=== PATIENT | female | born 1965 | race Caucasian/White ===

== ENCOUNTER → 2016-09-29 | Outpatient (REF) | payer OTHER ==
[~2016-09-29] MED LIST: *MAMMOGRAM; AMOXIL875 PO; AUG875 PO; EFFE150C; EFFE75CA75; EFFEXORXL1 PO; EFFEXORXL7 PO; FLEXERIL10 PO; HCTZ25 PO; HYDR25TA6; LIPITOR40 PO; TRAZ50TA; XANAX0.25 PO
== END ==
LOC: M SFHCCLAY 15:59
PROVIDERS: ATTEND Family Medicine
DX: F31.81 Bipolar II disorder (principal); J45.909 Unspecified asthma, uncomplicated; I10 Essential (primary) hypertension

== ENCOUNTER → 2017-03-16 | Outpatient (REF) | payer OTHER ==
[2017-03-16 18:18] LABS: ALKALINE PHOSPHATASE 91 U/L (45-117); ALT/SGPT 29 U/L (12-78); ANION GAP 11 MEQ/L (8-16); AST/SGOT 17 U/L (7-37); BILIRUBIN,TOTAL 0.5 MG/DL (0.2-1.0); BLOOD UREA NITROGEN 16 MG/DL (7-18); CALCIUM LEVEL 9.6 MG/DL (8.5-10.1); CARBON DIOXIDE LEVEL 29 MEQ/L (21-32); CHLORIDE LEVEL 100 MEQ/L (98-107); CHOLESTEROL LEVEL 256 MG/DL (<200); CREATININE FOR GFR 0.79 MG/DL (0.55-1.02); GLOMERULAR FILTRATION RATE > 60.0 (>51); GLUCOSE, FASTING 91 MG/DL (70-105); POTASSIUM SERUM 4.5 MEQ/L (3.5-5.1); SODIUM LEVEL 140 MEQ/L (136-145); TRIGLYCERIDES LEVEL 466 MG/DL (<150)
== END ==
LOC: M SFHCCLAY 10:41
PROVIDERS: ATTEND Family Medicine
DX: J01.41 Acute recurrent pansinusitis (principal); K21.9 Gastro-esophageal reflux disease without esophagitis; J30.9 Allergic rhinitis, unspecified

== ENCOUNTER 2017-08-13 07:19 | Day surgery (SDC) | payer OTHER ==
[2017-08-13] MEDS: NS 1,000 ML IV (08:00)
[2017-08-13] MEDS ORDERED: PROPOFOL 200 MG/20 ML VIAL As Ordered ×2 (08:22→08:33)
== END 2017-08-13 09:11 | disposition home or self-care (01) ==
LOC: M OPP 07:19
DX: Z12.11 Encounter for screening for malignant neoplasm of colon (principal); D12.5 Benign neoplasm of sigmoid colon; K57.30 Diverticulosis of large intestine without perforation or abscess without bleeding; K64.8 Other hemorrhoids; I10 Essential (primary) hypertension; K21.9 Gastro-esophageal reflux disease without esophagitis; M19.90 Unspecified osteoarthritis, unspecified site; M51.9 Unspecified thoracic, thoracolumbar and lumbosacral intervertebral disc disorder; M54.30 Sciatica, unspecified side; M48.00 Spinal stenosis, site unspecified; F41.9 Anxiety disorder, unspecified; F32.9 Major depressive disorder, single episode, unspecified; G43.909 Migraine, unspecified, not intractable, without status migrainosus; J45.909 Unspecified asthma, uncomplicated; Z87.442 Personal history of urinary calculi; Z99.2 Dependence on renal dialysis; F17.210 Nicotine dependence, cigarettes, uncomplicated; Z79.899 Other long term (current) drug therapy; Z80.8 Family history of malignant neoplasm of other organs or systems
CPT/HCPCS: 45385

== ENCOUNTER → 2017-08-16 | Outpatient (REF) | payer OTHER ==
[2017-08-16 22:11] LABS: APPEARANCE, URINE CLEAR (CLEAR); BACTERIA, URINE AUTO NEGATIVE (NEGATIVE); BILIRUBIN, URINE AUTO NEGATIVE (NEGATIVE); BLOOD, URINE BLOOD 2+ (NEGATIVE); COLOR, URINE YELLOW (YELLOW); GLUCOSE, URINE (UA) AUTO NEGATIVE (NEGATIVE); KETONE, URINE AUTO NEGATIVE (NEGATIVE); LEUKOCYTE ESTERASE, URINE AUTO NEGATIVE (NEGATIVE); NITRITE, URINE AUTO NEGATIVE (NEGATIVE); PROTEIN, URINE AUTO NEGATIVE (NEGATIVE); RBC, URINE AUTO 8 /HPF (0-3); SPECIFIC GRAVITY URINE AUTO 1.015 (1.002-1.035); SQUAMOUS EPITHELIAL CELL UR AU 0 /HPF (0-6); UROBILINOGEN, URINE AUTO 0.2 mg/dL (0.0-2.0); WBC, URINE AUTO 0 /HPF (0-3)
== END ==
LOC: M LAB REF 10:36
DX: N39.0 Urinary tract infection, site not specified (principal)

== ENCOUNTER 2017-09-02 21:37 | Emergency (ER) | payer OTHER ==
[2017-09-02 22:37] LABS: KETONE, URINE AUTO RFX NEGATIVE (NEGATIVE); LEUKOCYTE ESTERASE UR AUTO RFX NEGATIVE (NEGATIVE); MUCUS, URINE RFX SMALL (NEGATIVE); NITRITE, URINE AUTO RFX NEGATIVE (NEGATIVE); RBC, URINE AUTO RFX 4 /HPF (0-3); SPECIFIC GRAVITY UR AUTO RFX 1.015 (1.002-1.035); SQUAM EPITHELIAL CELL UR AURFX 0 /HPF (0-6); WBC, URINE AUTO RFX 1 /HPF (0-3)
== END 2017-09-03 07:04 | disposition home or self-care (01) ==
LOC: M ED 21:37
DX: M62.830 Muscle spasm of back (principal); I10 Essential (primary) hypertension; G89.29 Other chronic pain; M54.9 Dorsalgia, unspecified; K21.9 Gastro-esophageal reflux disease without esophagitis; F41.9 Anxiety disorder, unspecified; F32.9 Major depressive disorder, single episode, unspecified; Z72.0 Tobacco use; Z87.442 Personal history of urinary calculi; Z79.899 Other long term (current) drug therapy
CPT/HCPCS: 81001

== ENCOUNTER → 2017-10-06 | Outpatient (REF) | payer OTHER ==
[2017-10-07 11:37] LABS: HEMATOCRIT 47.5 % (36.0-47.0); HEMOGLOBIN 16.3 g/dl (12.0-15.5); MEAN CORPUSCULAR HEMOGLOBIN 31.8 pg (27.0-33.0); MEAN CORPUSCULAR HGB CONC 34.3 g/dl (32.0-36.5); MEAN CORPUSCULAR VOLUME 92.6 fl (80.0-96.0); PLATELET COUNT, AUTOMATED 358 10^3/uL (150-450); RED BLOOD COUNT 5.13 10^6/uL (4.00-5.40); RED CELL DISTRIBUTION WIDTH 12.7 % (11.5-14.5); WHITE BLOOD COUNT 13.3 10^3/uL (4.0-10.0)
[2017-10-07 12:05] LABS: ANION GAP 9 MEQ/L (8-16); BLOOD UREA NITROGEN 15 MG/DL (7-18); CALCIUM LEVEL 9.7 MG/DL (8.5-10.1); CARBON DIOXIDE LEVEL 26 MEQ/L (21-32); CHLORIDE LEVEL 104 MEQ/L (98-107); CREATININE FOR GFR 0.82 MG/DL (0.55-1.30); FREE T4 0.97 NG/DL (0.76-1.46); GLOMERULAR FILTRATION RATE > 60.0 (>51); GLUCOSE, FASTING 86 MG/DL (70-100); POTASSIUM SERUM 4.5 MEQ/L (3.5-5.1); SODIUM LEVEL 139 MEQ/L (136-145)
[2017-10-08 10:06] LABS: HEPATITIS C VIRUS ABY INDEX 0.1 INDEX (<0.8)
[2017-10-08 10:07] LABS: HIV 1&2 SCREEN CENTAUR NEGATIVE (NEGATIVE)
== END ==
LOC: M SFHCCLAY 14:01
DX: Z11.4 Encounter for screening for human immunodeficiency virus [HIV] (principal); Z11.59 Encounter for screening for other viral diseases; F41.9 Anxiety disorder, unspecified
CPT/HCPCS: 84443

== ENCOUNTER 2017-10-25 23:36 | Emergency (ER) | payer OTHER | END 2017-10-26 04:17 | disposition home or self-care (01) | LOC: M ED 23:36 | DX: S46.812A Strain of other muscles, fascia and tendons at shoulder and upper arm level, left arm, initial encounter (principal); Y04.8XXA Assault by other bodily force, initial encounter; Y92.098 Other place in other non-institutional residence as the place of occurrence of the external cause; M25.519 Pain in unspecified shoulder; M79.603 Pain in arm, unspecified; G89.29 Other chronic pain; Z79.899 Other long term (current) drug therapy | CPT/HCPCS: 73030 ==

== ENCOUNTER → 2018-01-12 | Outpatient (CLI) | payer OTHER, MEDICAID ==
[2018-01-12 10:20] LABS: ALBUMIN 3.8 GM/DL (3.2-5.2); ANION GAP 7 MEQ/L (8-16); BLOOD UREA NITROGEN 14 MG/DL (7-18); CALCIUM LEVEL 9.7 MG/DL (8.5-10.1); CARBON DIOXIDE LEVEL 28 MEQ/L (21-32); CHLORIDE LEVEL 105 MEQ/L (98-107); CHOLESTEROL LEVEL 240 MG/DL (<200); CHOLESTEROL RISK RATIO 7.058 (<5); CREATININE FOR GFR 0.83 MG/DL (0.55-1.30); GLOMERULAR FILTRATION RATE > 60.0 (>51); GLUCOSE, FASTING 95 MG/DL (70-100); HDL CHOLESTEROL 34 MG/DL (>40); LDL CHOLESTEROL 140 MG/DL (<100); MAGNESIUM LEVEL 2.3 MG/DL (1.8-2.4); NON-HDL-C 206 MG/DL; NT-PRO BNP 75 PG/ML (<125); PHOSPHORUS LEVEL 3.6 MG/DL (2.5-4.9); POTASSIUM SERUM 4.2 MEQ/L (3.5-5.1); SODIUM LEVEL 140 MEQ/L (136-145); TRIGLYCERIDES LEVEL 331 MG/DL (<150)
== END ==
LOC: M LAB 09:06
DX: E87.6 Hypokalemia (principal); R06.02 Shortness of breath; I11.9 Hypertensive heart disease without heart failure

== ENCOUNTER → 2018-07-06 | Outpatient (CLI) | payer OTHER, MEDICAID ==
[~2018-07-06] MED LIST changes: +ATEN50TA2 PO; +CETI10TA PO; +CYCL10TA PO; +EFFE150C PO; +HYDR25TA6 PO; +KLON0.5T PO; +MOME50SP NARES; +MOTR200T44 PO; +OMEP40CA2 PO; +TIZA4CAP PO
--- NOTE | 2018-07-06 13:05 | REPMRS ---
Patient History The patient states she has not had a clinical breast exam in over a year. Family history of unknown cancer at age 57 in paternal grandfather, prostate cancer at age 60 in father, unknown cancer at age 70 in maternal grandmother, colorectal cancer at age 70 in paternal grandmother. Took hormonal contraceptives for 6 months. 3D TOMOSYNTHESIS WAS PERFORMED. Digital Mammo Screening Bilat: July 06, 2018 - Exam #: [id number] Bilateral CC and MLO view(s) were taken. Technologist: Shawnee Guaman, Technologist Prior study comparison: May 29, 2014, bilateral digital mammo screening bilat performed at [facility]. December 28, 2011, bilateral bilat screen digital mammo, performed at [facility] ([facility]). FINDINGS: There are scattered fibroglandular densities. There has been no change in the appearance of the mammogram from the prior studies. There is a mild amount of residual fibroglandular tissue which is fairly symmetric. There is no interval development of dominant mass, architectural distortion, or clustered microcalcification suggestive of malignancy. Assessment: BI-RADS/ACR category 1 mammogram. Negative Mammogram. Recommendation Routine screening mammogram in 1 year (for women over age 40). This mammogram was interpreted with the aid of an FDA-approved computer-aided dectection system. Electronically Signed By: Wiley Ramesh MD 07/06/18 [id number]
== END ==
LOC: M RAD 09:56
PROVIDERS: ATTEND Family Medicine
DX: Z12.31 Encounter for screening mammogram for malignant neoplasm of breast (principal); Z80.8 Family history of malignant neoplasm of other organs or systems; Z92.0 Personal history of contraception

== ENCOUNTER 2019-05-16 18:20 | Emergency (ER) | payer MEDICAID, OTHER ==
[~2019-05-16] VITALS: Ht 157.5 cm; Wt 87.4 kg
[~2019-05-16 18:20] MED LIST changes: -OMEP40CA2 PO; +OMEP40CA97 PO
[2019-05-16 21:41] LABS: INFLUENZA A AMPLIFICATION POSITIVE (NEGATIVE); INFLUENZA B AMPLIFICATION NEGATIVE (NEGATIVE)
--- NOTE | 2019-05-16 22:09 | REPVR ---
PROCEDURE INFORMATION: Exam: XR Chest, 2 Views Exam date and time: 05/16/2019 8:46 PM Age: 53 years old Clinical indication: Cough; Additional info: Cough, recent uri TECHNIQUE: Imaging protocol: XR of the chest Views: 2 views. COMPARISON: No relevant prior studies available. FINDINGS: Lungs: No definite focal infiltrates. Bilateral infrahilar markings are relatively symmetric and probably related to lordotic projection. Pleural space: Unremarkable. No pleural effusion. No pneumothorax. Heart/Mediastinum: Unremarkable. No cardiomegaly. Bones/joints: Unremarkable. Other findings: Lordotic projection. IMPRESSION: Essentially negative lordotic chest. Electronically signed by: Aneesh Zamorano On 05/16/2019 22:09:26 PM
[2019-05-16] MEDS ORDERED: NS 500 ML IV ONE (22:15)
[2019-05-16] MEDS ORDERED: ALBUTEROL SULFATE 2.5 MG/0.5 ML INH NEB SOLN NEB ONE (22:45)
[2019-05-16 23:00] LABS: BASO # 0.1 10^3/uL (0.0-0.2); BASO % 0.8 % (0.0-1.0); EOS # 0.2 10^3/uL (0.0-0.5); EOS % 2.8 % (0.0-3.0); HEMATOCRIT 47.6 % (36.0-47.0); HEMOGLOBIN 15.8 g/dl (12.0-15.5); LYMPH # 3.5 10^3/uL (1.5-5.0); LYMPH % 43.6 % (24.0-44.0); MEAN CORPUSCULAR HEMOGLOBIN 30.9 pg (27.0-33.0); MEAN CORPUSCULAR HGB CONC 33.2 g/dl (32.0-36.5); MEAN CORPUSCULAR VOLUME 93.2 fl (80.0-96.0); MONO # 1.4 10^3/uL (0.0-0.8); NEUTROPHILS # 2.8 10^3/uL (1.5-8.5); NEUTROPHILS % 34.5 % (36.0-66.0); PLATELET COUNT, AUTOMATED 271 10^3/uL (150-450); RED BLOOD COUNT 5.11 10^6/uL (4.00-5.40)
[2019-05-17 00:27] LABS: APPEARANCE, URINE CLEAR (CLEAR); BACTERIA, URINE AUTO NEGATIVE (NEGATIVE); BILIRUBIN, URINE AUTO NEGATIVE (NEGATIVE); BLOOD, URINE BLOOD 2+ (NEGATIVE); COLOR, URINE YELLOW (YELLOW); GLUCOSE, URINE (UA) AUTO NEGATIVE (NEGATIVE); KETONE, URINE AUTO NEGATIVE (NEGATIVE); LEUKOCYTE ESTERASE, URINE AUTO NEGATIVE (NEGATIVE); NITRITE, URINE AUTO NEGATIVE (NEGATIVE); PROTEIN, URINE AUTO 1+ mg/dL (NEGATIVE); RBC, URINE AUTO 10 /HPF (0-3); SPECIFIC GRAVITY URINE AUTO 1.019 (1.002-1.035); SQUAMOUS EPITHELIAL CELL UR AU 0 /HPF (0-6); UROBILINOGEN, URINE AUTO 0.2 mg/dL (0.0-2.0); WBC, URINE AUTO 0 /HPF (0-3)
[2019-05-17] MEDS ORDERED: PROAAER10 INH (00:34)
[2019-05-17 00:50] VITALS: BP 142/72
== END 2019-05-17 00:52 | disposition home or self-care (01) ==
LOC: M ED 18:20
DX: J09.X2 Influenza due to identified novel influenza A virus with other respiratory manifestations (principal); B34.9 Viral infection, unspecified; R05 Cough; R50.9 Fever, unspecified; R31.9 Hematuria, unspecified; F17.200 Nicotine dependence, unspecified, uncomplicated; Z87.442 Personal history of urinary calculi; I10 Essential (primary) hypertension; E78.5 Hyperlipidemia, unspecified; K21.9 Gastro-esophageal reflux disease without esophagitis; F41.9 Anxiety disorder, unspecified; F32.9 Major depressive disorder, single episode, unspecified; Z79.899 Other long term (current) drug therapy

== ENCOUNTER → 2019-06-20 | Outpatient (REF) | payer OTHER ==
[~2019-06-20] MED LIST changes: +CYCL-707 PO; -CYCL10TA PO; +PROAAER10 INH
[2019-06-21 11:36] LABS: APPEARANCE, URINE CLEAR (CLEAR); BACTERIA, URINE AUTO NEGATIVE (NEGATIVE); BILIRUBIN, URINE AUTO NEGATIVE (NEGATIVE); BLOOD, URINE BLOOD 1+ (NEGATIVE); COLOR, URINE STRAW (YELLOW); GLUCOSE, URINE (UA) AUTO NEGATIVE (NEGATIVE); KETONE, URINE AUTO NEGATIVE (NEGATIVE); LEUKOCYTE ESTERASE, URINE AUTO NEGATIVE (NEGATIVE); NITRITE, URINE AUTO NEGATIVE (NEGATIVE); PROTEIN, URINE AUTO NEGATIVE (NEGATIVE); RBC, URINE AUTO 1 /HPF (0-3); SPECIFIC GRAVITY URINE AUTO 1.005 (1.002-1.035); SQUAMOUS EPITHELIAL CELL UR AU 0 /HPF (0-6); UROBILINOGEN, URINE AUTO 0.2 mg/dL (0.0-2.0); WBC, URINE AUTO 1 /HPF (0-3)
== END ==
LOC: M SFHCCLAY 16:10
PROVIDERS: ATTEND Family Medicine
DX: R31.29 Other microscopic hematuria (principal)

== ENCOUNTER → 2019-06-22 | Outpatient (CLI) | payer OTHER ==
[~2019-06-22] MED LIST changes: -CYCL-707 PO; +CYCL10TA PO
[2019-06-22 09:13] LABS: HEMATOCRIT 46.6 % (36.0-47.0); HEMOGLOBIN 15.8 g/dl (12.0-15.5); MEAN CORPUSCULAR HEMOGLOBIN 31.3 pg (27.0-33.0); MEAN CORPUSCULAR HGB CONC 33.9 g/dl (32.0-36.5); MEAN CORPUSCULAR VOLUME 92.5 fl (80.0-96.0); PLATELET COUNT, AUTOMATED 357 10^3/uL (150-450); RED BLOOD COUNT 5.04 10^6/uL (4.00-5.40); WHITE BLOOD COUNT 12.9 10^3/uL (4.0-10.0)
[2019-06-22 09:58] LABS: ALBUMIN 3.6 GM/DL (3.2-5.2); ALT/SGPT 33 U/L (12-78); BILIRUBIN,TOTAL 0.4 MG/DL (0.2-1.0); BLOOD UREA NITROGEN 16 MG/DL (7-18); CALCIUM LEVEL 9.6 MG/DL (8.5-10.1); CARBON DIOXIDE LEVEL 25 MEQ/L (21-32); CHLORIDE LEVEL 104 MEQ/L (98-107); CHOLESTEROL LEVEL 222 MG/DL (<200); CHOLESTEROL RISK RATIO 8.222 (<5); CREATININE FOR GFR 0.79 MG/DL (0.55-1.30); GLOMERULAR FILTRATION RATE > 60.0 (>51); GLUCOSE, FASTING 109 MG/DL (70-100); HDL CHOLESTEROL 27 MG/DL (>40); NON-HDL-C 195 MG/DL; POTASSIUM SERUM 4.1 MEQ/L (3.5-5.1); SODIUM LEVEL 137 MEQ/L (136-145); TOTAL PROTEIN 7.5 GM/DL (6.4-8.2); TRIGLYCERIDES LEVEL 540 MG/DL (<150)
== END ==
LOC: M LAB 08:28
PROVIDERS: ATTEND Family Medicine
DX: R31.29 Other microscopic hematuria (principal); E78.2 Mixed hyperlipidemia; I10 Essential (primary) hypertension; J30.9 Allergic rhinitis, unspecified

== ENCOUNTER → 2019-06-22 | Outpatient (CLI) | payer OTHER ==
[2019-06-22 09:13] LABS: HEMATOCRIT 46.6 % (36.0-47.0); MEAN CORPUSCULAR HEMOGLOBIN 32.2 pg (27.0-33.0); MEAN CORPUSCULAR HGB CONC 34.3 g/dl (32.0-36.5); MEAN CORPUSCULAR VOLUME 93.8 fl (80.0-96.0); PLATELET COUNT, AUTOMATED 354 10^3/uL (150-450); RED BLOOD COUNT 4.97 10^6/uL (4.00-5.40); WHITE BLOOD COUNT 13.3 10^3/uL (4.0-10.0)
[2019-06-22 09:53] LABS: BLOOD UREA NITROGEN 16 MG/DL (7-18); CALCIUM LEVEL 9.5 MG/DL (8.5-10.1); CARBON DIOXIDE LEVEL 25 MEQ/L (21-32); CHLORIDE LEVEL 104 MEQ/L (98-107); CHOLESTEROL LEVEL 222 MG/DL (<200); CHOLESTEROL RISK RATIO 8.538 (<5); CREATININE FOR GFR 0.82 MG/DL (0.55-1.30); GLOMERULAR FILTRATION RATE > 60.0 (>51); GLUCOSE, FASTING 112 MG/DL (70-100); HDL CHOLESTEROL 26 MG/DL (>40); NON-HDL-C 196 MG/DL; POTASSIUM SERUM 4.2 MEQ/L (3.5-5.1); SODIUM LEVEL 137 MEQ/L (136-145); TRIGLYCERIDES LEVEL 541 MG/DL (<150)
== END ==
LOC: M LAB 08:32
PROVIDERS: ATTEND Physician Assistant
DX: I11.9 Hypertensive heart disease without heart failure (principal)

== ENCOUNTER → 2019-06-28 | Outpatient (CLI) | payer OTHER ==
[~2019-06-28] MED LIST changes: +ISOVUE-370 76% 100ML VIAL (Q9967) As Ordered ONE
--- NOTE | 2019-06-28 17:36 | REP ---
Clinical: Microhematuria. Technique: Axial contrast enhanced images from the lung bases to the pubic symphysis using 100 ml Isovue 370 intravenous contrast material with coronal and sagittal re-formations. Comparison: None. Findings: Lung bases are clear. Visualized heart and pericardium normal. Diffuse fatty infiltration to the liver noted without focal hepatic lesion. Spleen, pancreas, bilateral adrenal glands and kidneys are normal. Evidence of prior cholecystectomy. Evaluation of the enteric system demonstrates diffuse diverticulosis without acute diverticulitis. No bowel obstruction or acute inflammatory process. Normal terminal ileum and appendix are identified in the right lower quadrant. Pelvis demonstrates normal bladder and evidence for prior hysterectomy. No ascites. No free air. No adenopathy. Abdominal aorta and vasculature without aneurysm or dissection. Musculoskeletal structures demonstrate degenerative changes along with a bone island in the L2 vertebral body. Impression: 1. Hepatic steatosis. 2. Diverticulosis without acute diverticulitis. 3. Evidence of prior cholecystectomy and hysterectomy. 4. No further acute abdominopelvic pathology appreciated. 5. Relatively normal appearance to the urinary tract system. Electronically Signed by Alonso Espinoza MD 06/28/2019 05:28 P
== END ==
LOC: M RAD 08:47
PROVIDERS: ATTEND Family Medicine
DX: R31.29 Other microscopic hematuria (principal); K76.0 Fatty (change of) liver, not elsewhere classified; K57.90 Diverticulosis of intestine, part unspecified, without perforation or abscess without bleeding
CPT/HCPCS: 74177; Q9967

== ENCOUNTER → 2019-10-06 | Outpatient (REF) | payer OTHER ==
[~2019-10-06] MED LIST changes: +CYCL-707 PO; -CYCL10TA PO; -ISOVUE-370 76% 100ML VIAL (Q9967) As Ordered ONE
[2019-10-06 18:17] LABS: APPEARANCE, URINE CLEAR (CLEAR); BACTERIA, URINE AUTO NEGATIVE (NEGATIVE); BILIRUBIN, URINE AUTO NEGATIVE (NEGATIVE); BLOOD, URINE BLOOD 1+ (NEGATIVE); COLOR, URINE YELLOW (YELLOW); GLUCOSE, URINE (UA) AUTO NEGATIVE (NEGATIVE); KETONE, URINE AUTO NEGATIVE (NEGATIVE); LEUKOCYTE ESTERASE, URINE AUTO NEGATIVE (NEGATIVE); NITRITE, URINE AUTO NEGATIVE (NEGATIVE); PROTEIN, URINE AUTO NEGATIVE (NEGATIVE); RBC, URINE AUTO 3 /HPF (0-3); SPECIFIC GRAVITY URINE AUTO 1.013 (1.002-1.035); SQUAMOUS EPITHELIAL CELL UR AU 1 /HPF (0-6); UROBILINOGEN, URINE AUTO 0.2 mg/dL (0.0-2.0); WBC, URINE AUTO 1 /HPF (0-3)
== END ==
LOC: M SMT 16:43
PROVIDERS: ATTEND Nurse Practitioner Family
DX: R31.29 Other microscopic hematuria (principal)

== ENCOUNTER → 2020-03-21 | Outpatient (CLI) | payer OTHER | LOC: M LAB 14:50 | PROVIDERS: ATTEND Physician Assistant Medical | DX: R19.4 Change in bowel habit (principal) ==

== ENCOUNTER → 2020-03-23 | Outpatient (REF) | payer OTHER | LOC: M LAB REF 13:18 | PROVIDERS: ATTEND Physician Assistant Medical | DX: R19.4 Change in bowel habit (principal) ==

== ENCOUNTER → 2020-05-09 | Outpatient (CLI) | payer OTHER ==
[~2020-05-09] MED LIST changes: +LIPI80TA PO; +PANT40TA29 PO; +TRIA37.53 PO; +VENL150C43 PO
== END ==
LOC: M LABSMTC 10:26
PROVIDERS: ATTEND Anesthesiology
DX: Z01.812 Encounter for preprocedural laboratory examination (principal); Z20.822 Contact with and (suspected) exposure to COVID-19

== ENCOUNTER 2020-05-14 11:11 | Day surgery (SDC) | payer OTHER ==
[~2020-05-14] VITALS: Ht 159.4 cm; Wt 83.0 kg
[~2020-05-14 11:11] MED LIST changes: +NS 1,000 ML IV ONE
--- OUTSIDE RECORDS SUMMARY | 2020-05-14 11:18 | CCD | Continuity of Care Document ---
Author Author Hellen GUPTA MD Organization Unknown Address [address] [place] [address] Phone [phone] Care Team Providers Care Endoscopy Registered Nurse Name Role Phone Navjot Erazo M.D. AUTM [phone] Geraldine Forde AUTM [phone] Problems Active Problems Provider Date Essential hypertension Celestine Cleaning M.D. Onset: 3 Gallbladder calculus with acute cholecystitis and no o bstruction Celestine Cleaning M.D. Onset: 04/13/2012 Incisional hernia Celestine Cleaning M.D. Onset: 04/13/2012 Unilateral recurrent simple inguinal hernia Celestine Cleaning M.D. Onset: 04/13/2012 Allergic asthma without status asthmaticus Brandy Badillo s, RPA-C Onset: 03/21/2020 Social History Type Date Description Comments Sex Unknown ETOH Use 2-3 A Week Tobacco Use Start: Unknown Smokes 1 Pack A Day Tobacco Use Start: Unknown Report Cessation Counseling Was Provided Allergies, Adverse Reactions, Alerts Description No Known Drug Allergies Medications Active Medications SIG Qnty Indications Ordering Provide r Date Protonix 40mg Tablets DR Take 1 tablet by mouth every day. 30tabs K21.9 Shorty Gupta MD 03/21/2020 Miralax 17GM/Scoop Powder 17 grams by mouth once daily. 510units R19.4 Shorty Gupta MD 03/21/2020 Suprep Bowel Prep Kit 17.5-3.13-1.6GM/177ML Solution take per doctor's bowel prep instructions. 354ml R19.4 Shorty Gupta MD 03/21/2020 Milk Of Magnesia 1200mg/15ML Suspe nsion take 45 milliliters by mouth as directed on colonoscopy prep sheet. R19.4 Shorty Gupta MD 03/21/2020 Atenolol 50mg Tablets 1 po qd 30tabs Unknown Albuterol Sulfate Powder 2 puffs every 4hr as needed mdi Unknown Venlafaxine HCL ER 150mg Caps ER 2 4HR Daily Unknown Triamterene/Hydrochlorothiazide 37.5-25mg Tablets 1 by mouth every day Unknown 000 Atorvastatin Calcium 80mg Tablets every day Unknown Zyrtec Allergy 10mg Tablets take on by mouth every day as needed seasonal allergies Unk nown Nasacort Allergy 24HR 55mcg/Act Ae rosol two sprays to each nostril daily prn Unknown Rolaids 550-110mg Chewtabs pr n Unknown Immunizations Description No Information Available Vital Signs Date Vital Result Comment 03/21/2020 2:10pm BP Systolic 128 mmHg BP Diastolic 82 mmHg Height 63 inches 5'3" Weight 187.00 lb BMI (Body Mass Index) 33.1 kg/m2 Prosperity Body Weight 115 lb Weight 84.823 kg BSA (Body Surface Area) 1.88 m2 07/28/2017 1:21pm BP Systolic 122 mmHg BP Diastolic 80 mmHg Height 63 inches 5'3" Weight 184.00 lb BMI (Body Mass Index) 32.6 kg/m2 Prosperity Body Weight 115 lb Weight 83.462 kg BSA (Body Surface Area) 1.87 m2 Results Description No Information Available Procedures Description No Information Available Medical Devices Description No Information Available Encounters Type Date Location Provider Dx Diagnosis Office Visit 03/21/2020 2:00p [facility] Latesha ssa A Neftali, MEMO K21.9 Gastro-esophageal reflux dis ease without esophagitis R10.13 Epigastric pain R19.4 Change in bowel habit R14.0 Abdominal distension (gaseou s) Assessments Date Code Description Provider 03/21/2020 K21.9 Gastro-esophageal reflux disease without esophagitis Brandy A MEMO Lindsay 03/21/2020 R10.13 Epigastric pain Brandy A MEMO Lagunas 03/21/2020 R19.4 Change in bowel habit Brandy A Charlebois, RPA-C 03/21/2020 R14.0 Abdominal distension (gaseous) M MEMO Cardoso Plan of Treatment 03/21/2020 - MEMO Aguero* K21.9 Gastro-esophageal reflux disease without esophagitis * R10.13 Epigastric pain * R19.4 Change in bowel habit * R14.0 Abdominal distension (gaseous) * * New Medication:* Protonix 40 mg * New Orders:* Endoscopy, Ordered: 03/21/20 * Comments:* Will arrange for upper endoscopy and colonoscopy. Reviewed risks and benefits of the procedures, as well as other options, with the patient. Prep for this procedure was discussed with patient, including risks and side effects associated with the prep. Patient verbalized understanding of all of the above and is in agreement to proceed. Patient will seek medical attention for any acute changes. Will monitor. * Follow up:* 2 weeks after procedures, sooner if needed. Functional Status Description No Information Available Mental Status Description No Information Available Referrals Refer to Reason for Referral Status Appt Date Shorty Gupta MD [facility] Scheduled 03/01/2020 [facility], Gastroenterology [address], [address] [place] [address] [phone]
--- OUTSIDE RECORDS SUMMARY | 2020-05-14 11:18 | CCD | Continuity of Care Document ---
Author Author Hellen HAMMER PA Organization Unknown Address [address] [place] [address], [place] [address] Phone [phone] Care Team Providers Care Cereal Maker Name Role Phone Geraldine Forde GARLAND AUTM [phone] Navjot Erazo M.D. AUTM [phone] Tulio Cornejo PA-C AUTM [phone] Brandy Lindsay AUTM [phone] Problems Active Problems Provider Date Syncope and collapse Jonas Yu MD Onset: 11/23/2017 Hypokalemia Jonas Yu MD Onset: 11/23/2017 Precordial pain Jonas Yu MD Onset: 11/23/2017 Dyspnea Jonas Yu MD Onset: 11/23/2017 Electrocardiogram abnormal Jonas Yu MD Onset: 2017 Disturbance in sleep behavior Jonas Yu MD Onset: Tobacco user Jonas Yu MD Onset: 11/23/2017 Body mass index 30+ - obesity Jonas Yu MD Onset: Benign hypertensive heart disease without congestive h eart failure Jonas Yu MD Onset: 11/23/2017 Obesity ERMELINDA Beaulieu Onset: 09/21/2018 Dietary management surveillance ERMELINDA Beaulieu Onset: 09/21/2018 Counseling about tobacco use ERMELINDA Benjamin Onset: 0 04/15/2020 Hyperlipidemia ERMELINDA Beaulieu Onset: 09/05/2019 Social History Type Date Description Comments Sex Unknown ETOH Use Occasionally consumes beer ETOH Use Occasionally consumes wine Tobacco Use Start: Unknown Patient is a current smoker, smo kes every day Started smoking at age 21, smokes up to 1ppd Smoking Status Reviewed: 09/05/19 Patient is a current smoker, smokes every day Started smoking at age 21, smokes up to 1ppd Exercise Type/Frequency Does housework daily Exercise Type/Frequency Does yardwork sporadical ly with minimal snow removal Exercise Type/Frequency Does gardening sporadica lly Exercise Limitations Back Pain Exercise Limitations Shortness Of Breath Allergies, Adverse Reactions, Alerts Description No Known Drug Allergies Medications Active Medications SIG Qnty Indications Ordering Provide r Date Pantoprazole Sodium 40mg Tablets D R 1 by mouth every day Brandy Lindsay PA 04/14/19 21 Atorvastatin Calcium 80mg Tablets 1 by mouth every night at bedtime 90tabs Jonas Yu MD 09/05/2019 Triamterene/Hydrochlorothiazide 37.5-25mg Capsules 1 by mouth every day Navjot Erazo M.D. Proair HFA 108(90Base) mcg/Act Aer osol 2 puffs by mouth as needed Navjot Erazo M.D. 12/20 Atenolol 50mg Tablets 1 by mouth every day Unknown 11/22/2017 Effexor XR 150mg Caps ER 24HR 1 by mouth every day Unknown 11/22/2017 Zyrtec Allergy 10mg Capsules 1 by mouth every day as needed Unknown 11/22/2017 Tizanidine HCL 4mg Capsules 1 by mouth three times a day as needed Unknown 11/10 Hydroxyzine HCL 25mg Tablets 1 by mouth every 8 hours as needed Unknown 11/23/19 18 Nasonex 50mcg/Act Suspension 1 spray intranasal as needed Unknown 11/22/2017 Patanol 0.1% Solution 1 drop both eyes as needed Unknown 11/22/2017 Immunizations Description No Information Available Vital Signs Date Vital Result Comment 04/15/2020 8:49am Weight 186.00 lb Height 63 inches 5'3" BMI (Body Mass Index) 32.9 kg/m2 09/05/2019 1:50pm Weight 191.00 lb Height 63 inches 5'3" BMI (Body Mass Index) 33.8 kg/m2 Heart Rate 76 /min BP Systolic Sitting 106 mmHg large cuff/Ra BP Diastolic Sitting 80 mmHg large cuff/Ra Results Description No Information Available Procedures Date Code Description Status 04/15/2020 25025 ECG 12-Lead Completed Medical Devices Description No Information Available Encounters Type Date Location Provider Dx Diagnosis Office Visit 04/15/2020 8:45a Main Office ERMELINDA Benjamin I11 .9 Hypertensive heart disease without heart failure E78.5 Hyperlipidemia, unspecified R94.31 Abnormal electrocardiogram [ ECG] [EKG] F17.210 Nicotine dependence, cigaret regine, uncomplicated Z71.6 Tobacco abuse counseling E66.8 Other obesity Z71.3 Dietary counseling and surve illance Assessments Date Code Description Provider 04/15/2020 I11.9 Hypertensive heart disease witho ut heart failure ERMELINDA Benjamin 04/15/2020 E78.5 Hyperlipidemia, unspecified ERMELINDA [place] 04/15/2020 R94.31 Abnormal electrocardiogram [ECG] [EKG] ERMELINDA Benjamin 04/15/2020 F17.210 Nicotine dependence, cigarettes, uncomplicated ERMELINDA Benjamin 04/15/2020 Z71.6 Tobacco abuse counseling ERMELINDA Meyer ra 04/15/2020 E66.8 Other obesity ERMELINDA Chaney Cha, se 04/15/2020 Z71.3 Dietary counseling and surveilla nce ERMELINDA Benjamin Plan of Treatment Future Appointment(s):* 10/15/2020 8:45 am - ERMELINDA Benjamin at Main Office 04/15/2020 - ERMELINDA Benjamin* I11.9 Hypertensive heart disease without heart failure* New Labs:* BMP, Ordered: 04/15/20 * Recommendations:* Please obtain labs Continue atenolol and triamterene/hydrochlorothiazide at current dosages * E78.5 Hyperlipidemia, unspecified* New Labs:* Lipid Panel, Ordered: 04/15/20 * R94.31 Abnormal electrocardiogram [ECG] [EKG]* Recommendations:* No further evaluation is needed at this time. * F17.210 Nicotine dependence, cigarettes, uncomplicated * Z71.6 Tobacco abuse counseling * E66.8 Other obesity* Recommendations:* Recommended for patient to follow a more whole food diet. Advised patient to avoid overly processed foods and packaged foods. Advised patient to avoid sodas, juices and other liquid calories. Recommended at least 30 minutes of exercise 3 days a week. * Z71.3 Dietary counseling and surveillance * All * Follow up:* Follow up in 6 months Functional Status Functional Condition Comment Date Status Independent with all ADL's Activ e Mental Status Description No Information Available Referrals Description No Information Available
--- OUTSIDE RECORDS SUMMARY | 2020-05-14 11:19 | CCD ---
Author Author [facility] Organization [facility] Address Unknown Phone Unavailable Care Team Providers Care Obstetric Anaesthetist Name Role Phone Don Jones Unavailable PROBLEMS Type Condition ICD9-CM Code SBH29-SB Code Onset Dates Condition S tatus SNOMED Code Notes Problem Inguinal hernia without obst ruction or gangrene, recurrence not specified, unspecified laterality K40.90 Active 84 133987 Problem Calculus of gallbladder without cholecystitis wi thout obstruction K80.20 Active 178699071 Problem Incisional hernia without mention of obstruction or gangre ne K43.2 Active 022912537 Problem Mixed hyperlipidemia E78.2 Active 215548237 Problem 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9 Act jong 94304308 Problem Neck pain M54.2 Active 67178539 Problem Sciatica, unspecified laterality M54.30 Active 59307904 Problem Psychosocial stressors V62.89 Active 95324528 Problem Hypokalemia E87.6 Active 76195200 Problem Arthralgia, unspecified joint M25.50 Active 57 331643 Problem Insomnia, unspecified type G47.00 Active 57369 2000 Problem Bipolar 2 disorder F31.81 Active 96794257 Problem Myalgia M79.1 Active 25658700 Problem Gastroesophageal reflux disease without esophagitis K21.9 Active 399769923 Problem Daytime somnolence R40.0 Active 819799031695 Problem Allergic rhinitis, unspecified seasonality, unspecifie d trigger J30.9 Active 49387807 Problem ROOT (nonalcoholic steatohepatitis) K75.81 Acti ve 061574275 Problem Ureteral calculi N20.1 Active 39593807 Problem Metabolic syndrome E88.81 Active 934685821 Problem Urinary tract infection, site unspecified N39.0 Active 58686727 Problem Anxiety disorder, unspecified type F41.9 Activ e 736060527 Problem Acute atopic conjunctivitis, bilateral H10.13 A ctive 143441660 Problem Nocturnal hypoxemia G47.34 Active 337147428 Problem Breast screening Z12.31 Active 245461469 Problem Microhematuria R31.29 Active 133480281 ALLERGIES No Known Allergies ENCOUNTERS from 1966 to 2020-02-14 Encounter Location Date Provider Diagnosis [address] [address] [place] [address] Jan Don Gordon Nasal congestion R09.81 and Viral URI J0 6.9 IMMUNIZATIONS Vaccine Route Administration Date Status Influenza (6mo & up) Fluzone IM Intramuscular Feb 24, 2012 Ad ministered SOCIAL HISTORY Tobacco Use: Social History Observation Description Date Details (start date - stop date) Current Smoker Sex Assigned At : Social History Observation Description Sex Assigned At Unknown Audit Question Answer Notes Total Score: 3 Interpretation: Alcohol Education Language: Question Answer Notes Languages spoken: Monegasque Sexual Hx: Question Answer Notes Had sex in the last 12 months (vaginal, oral, or anal)? No LMP: hysterectomy Have you ever had an STD? No Drug and Alcohol Question Answer Notes Total Score: 1 Interpretation: Low level Alcohol Screening: Question Answer Notes Did you have a drink containing alcohol in the past year? Ye s Points 1 Interpretation Negative How often did you have six or more drinks on one occas ion in the past year? Never (0 points) How many drinks did you have on a typica l day when you were drinking in the past year? 1 or 2 (0 points) How often did you have a drink containing alcohol in t he past year? Monthly or less (1 point) BMI Care Goal Follow-Up Question Answer Notes Above Normal BMI Follow-Up Dietary management educatio n, guidance, and counseling Tobacco Use: Question Answer Notes Are you a: current smoker 01/12/2020 Additional Findings: Tobacco User none Patient counseled on the dangers of tobacco use and urged to quit: 06/20/2019 How many cigarettes a day do you smoke? 11-20 Are you interested in quitting? Not ready to quit Counseled the patient on smoking effects, education provided 06/20/2019 REASON FOR REFERRAL No Information VITAL SIGNS Weight 192 lbs Jan, Height 62.5 in Jan, BMI 34.55 kg/m2 Jan, Heart Rate 74 /min Jan, Respiratory Rate 18 /min Jan, Temperature 98.2 degrees Fahrenheit Jan, Oximetry 99 Jan, Blood pressure systolic 121 mm Hg Jan, Blood pressure diastolic 76 mm Hg Jan, MEDICATIONS Medication SIG (Take, Route, Frequency, Duration) Start Date En d Date Status Zyrtec Allergy 10 mg 1 tab(s) Orally Once a day Mar, Not-Taking Patanol 0.1 % 1 drop into affected eye Ophthalmic Twice a day 2013 Active Venlafaxine HCl ER 150 MG 1 capsule with food Orally Once a day Active Nasonex 50 MCG/ACT 2 sprays in each nostril Nasally Once a day as n eeded Not-Taking Fluticasone Propionate 50 MCG/ACT 1 spray in each nostril Na fernandez Once a day Dec, Not-Taking Esomeprazole Magnesium 40 MG 1 capsule Orally Once a day Active Atorvastatin Calcium 40 MG 1 tablet Orally Once a day Active Albuterol Sulfate HFA 108 (90 Base) MCG/ACT 2 puffs In halation q 4 hours, prn dyspnea or wheezing, or cough Not-Taking Atenolol 50 MG 1 tablet Orally Once a day Active Triamterene-HCTZ 37.5-25 MG 1 tablet in the morning Orally Once a d ay Active Tizanidine HCl 4 MG 1 tablet as needed Orally Three times a day Not-Taking PROCEDURES No Information RESULTS No Results REASON FOR VISIT cough, sore throat MEDICAL (GENERAL) HISTORY Type Description Date Medical History Pap smear Medical History R inguinal hernia Medical History kidney stone Medical History hysterectomy 06/02/2011 Medical History Spirometry done last 12/24/2015 Medical History Allergic rhinitis Medical History Asthma Surgical History X 3 Surgical History S/P TUBAL LIGATION Surgical History D&C WITH ABLATION APR 2010 Surgical History uterus removed 05/2011 Surgical History gallbladder june 2012 Surgical History abd hernia repair with gallbladder june 2012 Surgical History cystoscopy 10/18/2019 Hospitalization History surgicaly related Hospitalization History [facility] held overnight for observatio n 10/16/17 Goals Section No Information Health Concerns No Information MEDICAL EQUIPMENT No Information MENTAL STATUS No Information FUNCTIONAL STATUS No Information ASSESSMENTS Encounter Date Diagnosis Notes Jan, Viral URI (ICD-10 - J06.9) Jan, Nasal congestion (ICD-10 - R09.81) PLAN OF TREATMENT Treatment Notes Assessment Notes Clinical Notes Viral URI You have a viral infection a t this time. Unfortunately, antibiotics do not help with viral infections. They are usually benign and self-limited infections, so treatment is based on symptomatic relief. Rest and drink clear fluids throughout the day. You may use humidification and saline irrigation to help with the congestion. You may also take motrin or tylenol as needed for pain or fever. You are considered to be contagious until you have been fever free for more than 24 hours. You may also consider using [id number] decongestant medication as needed. Viral infections sometimes may last 10-14 days before resolving completely. Next Appt Details 2 - 3 Days unless improving Reason: Provider Name:Navjot Erazo, 2020-07-16 03 :30:00 PM, [place], [address], Insurance Providers Payer Name Payer Address Payer Phone Insured Name Patient Relati onship to Insured Coverage Start Date Coverage End Date [facility] [address] [phone] [facility] [id number] [phone] COLLEEN ESQUIVEL self
--- OUTSIDE RECORDS SUMMARY | 2020-05-14 11:19 | CCD ---
Author Author [facility] Organization [facility] Address Unknown Phone Unavailable Care Team Providers Care Patternmaker Metal Bench Name Role Phone Natalie Templeton Unavailable Unavailable Jareth, L Ashley PA Unavailable Unavailable Jareth, L Ashley PA Unavailable Unavailable Jareth, L Ashley PA Unavailable Unavailable Jareth, L Ashley PA Unavailable Unavailable Jareth, L Ashley PA Unavailable Unavailable Jareth, L Ashley PA Unavailable Unavailable Jareth, L Ashley PA Unavailable Unavailable Jareth, L Ashley PA Unavailable Unavailable Jareth, L Ashley PA Unavailable Unavailable Jareth, L Ashley PA Unavailable Unavailable Jareth, L Ashley PA Unavailable Unavailable Jareth, L Ashley PA Unavailable Unavailable Jareth, L Ashley PA Unavailable Unavailable Jareth, L Ashley PA Unavailable Unavailable Jareth, L Ashley PA Unavailable Unavailable Jareth, L Ashley PA Unavailable Unavailable Jareth, L Ashley PA Unavailable Unavailable Jareth, L Ashley PA Unavailable Unavailable Jareth, L Ashley PA Unavailable Unavailable Jareth, L Ashley PA Unavailable Unavailable Jareth, L Ashley PA Unavailable Unavailable Jareth, L Ashley PA Unavailable Unavailable Cornejo, M Barratt PA Unavailable Unavailable Cornejo, M Barratt PA Unavailable Unavailable Cornejo, M Barratt PA Unavailable Unavailable Cornejo, M Barratt PA Unavailable Unavailable Cornejo, M Barratt PA Unavailable Unavailable Cornejo, M Barratt PA Unavailable Unavailable Cornejo, M Barratt PA Unavailable Unavailable Cornejo, M Barratt PA Unavailable Unavailable Cornejo, M Barratt PA Unavailable Unavailable Cornejo, M Barratt PA Unavailable Unavailable Cornejo, M Barratt PA Unavailable Unavailable Cornejo, M Barratt PA Unavailable Unavailable Cornejo, M Barratt PA Unavailable Unavailable Cornejo, M Barratt PA Unavailable Unavailable Cornejo, M Barratt PA Unavailable Unavailable Cornejo, M Barratt PA Unavailable Unavailable Cornejo, M Barratt PA Unavailable Unavailable Cornejo, M Barratt PA Unavailable Unavailable Cornejo, M Barratt PA Unavailable Unavailable Cornejo, M Barratt PA Unavailable Unavailable Cornejo, M Barratt PA Unavailable Unavailable Cornejo, M Barratt PA Unavailable Unavailable Cornejo, M Barratt PA Unavailable Unavailable Cornejo, M Barratt PA Unavailable Unavailable Cornejo, M Barratt PA Unavailable Unavailable Cornejo, M Barratt PA Unavailable Unavailable Cornejo, M Barratt PA Unavailable Unavailable Charlebois, A Brandy RPA C Unavailable Unavailable Charlebois, A Brandy RPA C Unavailable Unavailable Charlebois, A Brandy RPA C Unavailable Unavailable Charlebois, A Brandy RPA C Unavailable Unavailable Charlebois, A Brandy RPA C Unavailable Unavailable Charlebois, A Brandy RPA C Unavailable Unavailable Charlebois, A Brandy RPA C Unavailable Unavailable Charlebois, A Brandy RPA C Unavailable Unavailable Charlebois, A Brandy RPA C Unavailable Unavailable Charlebois, A Brandy RPA C Unavailable Unavailable Charlebois, A Brandy RPA C Unavailable Unavailable Charlebois, A Brandy RPA C Unavailable Unavailable Charlebois, A Branyd RPA C Unavailable Unavailable Charlebois, A Brandy RPA C Unavailable Unavailable Charlebois, A Brandy RPA C Unavailable Unavailable Charlebois, A Brandy RPA C Unavailable Unavailable Charlebois, A Brandy RPA C Unavailable Unavailable Charlebois, A Brandy RPA C Unavailable Unavailable Charlebois, A Brandy RPA C Unavailable Unavailable Charlebois, A Brandy RPA C Unavailable Unavailable Charlebois, A Brandy RPA C Unavailable Unavailable Charlebois, A Brandy RPA C Unavailable Unavailable Charlebois, A Brandy RPA C Unavailable Unavailable Charlebois, A Brandy RPA C Unavailable Unavailable Charlebois, A Brandy RPA C Unavailable Unavailable Charlebois, A Brandy RPA C Unavailable Unavailable Charlebois, A Brandy RPA C Unavailable Unavailable Charlebois, A Brandy RPA C Unavailable Unavailable Charlebois, A Brandy RPA C Unavailable Unavailable Charlebois, A Brandy RPA C Unavailable Unavailable Charlebois, A Brandy RPA C Unavailable Unavailable HARMAN, L AGUILAR PA Unavailable Unavailable HARMAN, L AGUILAR PA Unavailable Unavailable HARMAN, L AGUILAR PA Unavailable Unavailable HARMAN, L AGUILAR PA Unavailable Unavailable HARMAN, L AGUILAR PA Unavailable Unavailable HARMAN, L AGUILAR PA Unavailable Unavailable HARMAN, L AGUILAR PA Unavailable Unavailable HARMAN, L AGUILAR PA Unavailable Unavailable HARMAN, L AGUILAR PA Unavailable Unavailable HARMAN, L AGUILAR PA Unavailable Unavailable Re-disclosure Warning The records that you are about to access may contain information from federally-assisted alcohol or drug abuse programs. If such information is present, then the following federally mandated warning applies: This information has been disclosed to you from records protected by federal confidentiality rules (42 CFR part 2). The federal rules prohibit you from making any further disclosure of this information unless further disclosure is expressly permitted by the written consent of the person to whom it pertains or as otherwise permitted by 42 CFR part 2. A general authorization for the release of medical or other information is NOT sufficient for this purpose. The Federal rules restrict any use of the information to criminally investigate or prosecute any alcohol or drug abuse patient.The records that you are about to access may contain highly sensitive health information, the redisclosure of which is protected by Article 27-F of the [facility] Public Health law. If you continue you may have access to information: Regarding HIV / AIDS; Provided by facilities licensed or operated by the [facility] Office of Mental Health; or Provided by the [facility] Office for People With Developmental Disabilities. If such information is present, then the following [facility] mandated warning applies: This information has been disclosed to you from confidential records which are protected by state law. State law prohibits you from making any further disclosure of this information without the specific written consent of the person to whom it pertains, or as otherwise permitted by law. Any unauthorized further disclosure in violation of state law may result in a fine or half-way sentence or both. A general authorization for the release of medical or other information is NOT sufficient authorization for further disc losure. Family History Family Member Name Family Member Gender Family Member Status Date o f Status Description Data Source(s) Unknown Male Problem MEDENT ([facility]) Unknown Male Problem MEDENT ([facility]) Unknown Unknown Problem MEDENT ([facility], ) brother Encounters Encounter Providers Location Date Indications Data Source(s ) Outpatient Attender: AGUILAR WADSWORTH Main Office 04/15/2020 0 7:45:00 AM EST MEDENT ([facility]) Outpatient Attender: Brandy Medel/Simeon/Maxine cooper/Alonso 03/21/2020 01:00:00 PM EST MEDENT ([facility], ) Outpatient [address] [facility] [facility] [place] [address] 02/07/2020 12:00:00 AM EDT eCW1 ([facility]) Unknown [address] [facility] [place] [address] 02/07/2020 12:00:00 AM EDT eCW1 ([facility]) Outpatient [address] [facility] [facility] [place] [address] 01/12/2020 12:00:00 AM EDT eCW1 ([facility]) [facility] [place] [address] [address] 12/21/2019 12:00:00 AM EDT eCW1 [facility] [place] [address] [facility] [address] 09/15/2019 12:00:00 AM EDT eCW1 [facility] [place]) [place] [address] [address] 09/11/2019 12:00:00 AM EDT eCW1 [facility]) Outpatient Attender: Ashley WADSWORTH Main Office 09/05/2019 02:00:0 0 PM EDT MEDENT ([facility]) Outpatient Referrer: Prashant WADSWORTH 07/26/2019 05:47:0 0 AM EDT [facility] Outpatient Referrer: Prashant WADSWORTH 07/25/2019 12:24:0 0 PM EDT [facility] [address] [facility] [address] 06/28/2019 12:00:00 AM EDT eCW1 ([facility] [address] [address] 06/27/2019 12:00:00 AM EDT eCW1 [facility] [address] [address] 06/21/2019 12:00:00 AM EDT eCW1 ([facility] [address] [facility] [address] 06/20/2019 12:00:00 AM EDT eCW1 ([facility] Outpatient Referrer: Prashant WADSWORTH 06/05/2019 08:26:0 0 PM EST [facility] Outpatient Referrer: Prashant WADSWORTH 05/24/2019 03:27:0 0 PM EST [facility] [address] [address] 05/17/2019 12:00:00 AM EST eCW1 ([facility]) Medications Medication Brand Name Start Date Product Form Dose Route Admi nistrative Instructions Pharmacy Instructions Status Indications Reaction Description Data Source(s) pantoprazole 40 MG Delayed Release Oral Tablet Pantoprazole Sodium 04/14/2020 12:00:00 AM EST ORAL active M EDENT ([facility]) Suprep Bowel Prep Kit Suprep Bowel Prep Kit 03/21/2020 12:00:00 AM EST active MEDENT ([facility], ) POLYETHYLENE GLYCOL 3350 142 MG/ML Oral Solution [Miralax] M iralax 03/21/2020 12:00:00 AM EST ORAL active M EDENT ([facility]) Magnesium Hydroxide 80 MG/ML Oral Suspension Milk Of Magnesi a 03/21/2020 12:00:00 AM EST ORAL active M EDENT ([facility]) pantoprazole 40 MG Delayed Release Oral Tablet [Protonix] Pr otonix 03/21/2020 12:00:00 AM EST ORAL active M EDENT ([facility]) Sulfamethoxazole 800 MG / Trimethoprim 1 60 MG Oral Tablet [Bactrim] Bactrim DS 800-160 MG Bactrim DS 800-160 MG 10/06/2019 12:00:00 AM EDT suspended Bactrim DS 800-160 MG eCW1 ([facility]) atorvastatin 80 MG Oral Tablet Atorvastatin Calcium 09/05/2019 1 2:00:00 AM EDT ORAL active MEDENT ( [facility]) Insurance Providers Payer name Policy type / Coverage type Policy ID Covered libertarian ID Covered libertarian's relationship to morrissey Policy Morrissey Plan Information [facility] [id number] SP [id number] [facility] [id number] SP [id number] [facility] O [id number] S [id number] MEDICAID [id number] SP [id number] [facility] [id number] S [id number] [facility]-Medicaid [id number] ANS-Commercial [id number] Medicaid Medigap Part B [id number] Self [id number] Umr Commercial [id number] Self [id number] Medicaid Medigap Part B [id number] Self [id number] Commercial [id number] Self [id number] ANSI-Commercial [id number] ANSI-Medicaid [id number] ANSI-Commercial [id number] ANSI-Medicaid [id number] ANSI-Medicaid [id number] ANSI-Commercial [id number] MEDICAID [id number] S [id number] ANSI-Commercial [id number] ANSI-Medicaid [id number] UMR -O/P [id number] 18 [id number] UMR [id number] S [id number] [facility] [id number] S [id number] [facility] [id number] ANSI-Medicaid [id number] ANSI-Commercial [id number] ANSI-Medicaid [id number] ANSI-Commercial [id number] ANSI-Commercial [id number] ANSI-Medicaid [id number] SELF PAY UNAVAILABLE S UNAVAILA BLE ANSI-Medicaid [id number] ANSI-Commercial [id number] ANSI-Medicaid [id number] ANSI-Commercial [id number] ANSI-Commercial [id number] ANSI-Medicaid [id number] ANSI-Medicaid [id number] ANSI-Commercial [id number] [place] Med[place] Part [place] [id number] Self [id number] Umr (pr) Commercial [id number] Self [id number] [place] [id number] Self [id number] ANSI-Commercial [id number] ANSI-Medicaid [id number] [place] Med[place] Part B [id number] Self [id number] OTHER INS [id number] S [id number] ANSI-Commercial [id number] ANSI-Medicaid [id number] ANSI-Medicaid [id number] ANSI-Commercial [id number] Medicaid Medigap Part B [id number] Self [id number] Umr Commercial [id number] Self [id number] Medicaid Medigap Part B [id number] Self [id number] Umr Commercial [id number] Self [id number] [facility] [id number] SP [id number] [facility] [id number] SP [id number] UMR UNAVAILABLE S UNAVAILA BLE UMR [facility] [id number] SP [id number] [facility] [id number] SP [id number] [employer] ([employer]) [id number] Se lf [id number] [facility] [id number] SP [id number] [facility] U [id number] Self [id number] [facility] U [id number] Self [id number] GHI COMM CONTR [id number] S [id number] [employer]-O/P [id number] 18 [id number] Problems, Conditions, and Diagnoses Code Display Name Description Problem Type Effective Dates Data Source(s) 887529572 Counseling about tobacco use Counseling about tobacco use Problem 04/15/2020 12:00:00 AM EST MEDENT ([facility]) [id number] Allergic asthma without status asthmatic us Allergic asthma without status asthmaticus Problem 03/21/2020 12:00:00 AM EST MEDENT ([facility], ) E88.81 [id number] Metabolic syndrome Problem 01/13/2020 12:00: 00 AM EDT eCW1 ([facility]) K75.81 [id number] ROOT (nonalcoholic steatohepatitis) Probl em 01/13/2020 12:00:00 AM EDT eCW1 ([facility]) R31.29 [id number] Microhematuria Problem 10/06/2019 12:00:00 A M EDT eCW1 ([facility]) [id number] Hyperlipidemia Hyperlipidemia Problem 09/05/2019 12:00: 00 AM EDT MEDENT ([facility]) Surgeries/Procedures Procedure Description Date Indications Data Source(s) ECG ROUTINE ECG W/LEAST 12 LDS W/I&R 04/15/2020 12:00: 00 AM EST MEDENT ([facility]) ECG ROUTINE ECG W/LEAST 12 LDS W/I&R 09/05/2019 12:00: 00 AM EDT MEDENT ([facility]) Results ID Date Data Source [id number] 05/09/2020 09:45:00 AM EST [facility] Name Value Range Interpretation Code Description Data Shasha rce(s) Supporting Document(s) SARS coronavirus 2 RNA Not Detected [facility] [place] This lab was ordered by [facility] and reported by [facility]. ID Date Data Source [id number] 04/26/2020 12:00:00 AM EST [facility] Name Value Range Interpretation Code Description Data Shasha rce(s) Supporting Document(s) SARS coronavirus 2 RNA [Presence] in Res piratory specimen by BHAKTI with probe detection NEGATIVE [facility] This lab was ordered by Ivan Cantu and reported by [facility]. ID Date Data Source [id number] 04/26/2020 12:00:00 AM EST [facility] Name Value Range Interpretation Code Description Data Shasha rce(s) Supporting Document(s) Carestart Rapid COVID Antigen Test Negative [facility] This lab was reported by Ivan [facility] abi. ID Date Data Source [id number] 06/22/2019 08:52:00 AM EDT MEDENT ([facility]) Name Value Range Interpretation Code Description Data Shasha rce(s) Supporting Document(s) HDL Cholesterol 26 mg/dL MEDENT ([facility]) Triglycerides Level 541 mg/dL MEDENT ([facility]) Cholesterol Level 222 mg/dL MEDENT ([facility]) Cholesterol Risk Ratio 8.538 MEDENT ([facility]) Non-HDL-C 196 mg/dL [facility] ID Date Data Source [id number] 06/22/2019 08:52:00 AM EDT MEDENT ([facility]) Name Value Range Interpretation Code Description Data Shasha rce(s) Supporting Document(s) White Blood Count 13.3 10 4.0-10.0 MEDENT ([facility]) Red Blood Count 4.97 10 4.00-5.40 MEDENT ([facility]) Hematocrit 46.6 % 36.0-47.0 MEDENT ([facility]) Mean Corpuscular Volume 93.8 fl 80.0-96.0 M EDENT ([facility]) Hemoglobin 16.0 g/dL 12.0-15.5 MEDENT ([facility]) Mean Corpuscular Hemoglobin 32.2 pg 27.0-33.0 MEDENT ([facility]) Red Cell Distribution Width 13.5 % 11.5-14.5 MEDENT ([facility]) Mean Corpuscular HGB Conc 34.3 g/dL 32.0-36.5 MEDENT ([facility]) Nucleated Red Blood Cell % 0.0 % 0-0 MED ENT ([facility]iology [facility]) Platelet Count, Automated 354 10 150-450 MEDENT ([facility]) ID Date Data Source [id number] 06/22/2019 08:52:00 AM EDT MEDENT ([facility]) Name Value Range Interpretation Code Description Data Shasha rce(s) Supporting Document(s) Blood Urea Nitrogen 16 mg/dL 7-18 MEDENT ([facility]) Glucose, Fasting 112 mg/dL 70-100 [facility] [place] Glomerular Filtration Rate [facility] <content>Units are mL/min/1.73 m2</content>
<content></content>
<content>Chronic Kidney Disease Staging per NKF:</content>
<content></content>
<content>Stage I & II GFR >=60 Normal to Mildly Decreased</content>
<content>Stage III GFR 30- 59 Moderately Decreased</content>
<content>Stage IV GFR 15-29 Severely Decreased</content>
<content>Stage V GFR <15 Very Little GFR Left</content>
<content>ESRD GFR <15 on DECK BUILDER</content>
<content></content> Creatinine For GFR 0.82 mg/dL 0.55-1.30 MEDENT ([facility]) Sodium Level 137 meq/L 136-145 MEDENT ([facility]) Carbon Dioxide Level 25 meq/L 21-32 MEDENT ([facility]) Chloride Level 104 meq/L 98-107 MEDENT ([facility]) Potassium Serum 4.2 meq/L 3.5-5.1 MEDENT ([facility]) Anion Gap 8 meq/L 8-16 [facility] Calcium Level 9.5 mg/dL 8.5-10.1 MEDENT ([facility]) Procedure Social History Code Duration Value Status Description Data Source(s ) Smoking 02/07/2020 12:00:00 AM EDT Current Smoker completed Curre nt Smoker eCW1 ([facility]) Smoking 02/07/2020 12:00:00 AM EDT Current Smoker completed Curre nt Smoker eCW1 ([facility]) Smoking 01/12/2020 12:00:00 AM EDT Current Smoker completed Curre nt Smoker eCW1 ([facility]) Smoking 06/20/2019 12:00:00 AM EDT Current Smoker completed Curre nt Smoker eCW1 ([facility]) Smoking 06/20/2019 12:00:00 AM EDT Current Smoker completed Curre nt Smoker eCW1 ([facility]) Vital Signs ID Date Data Source UNK Name Value Range Interpretation Code Description Data Source(s) Body mass index (BMI) [Ratio] 32.9 kg/m2 32.9 k g/m2 MEDENT ([facility]) Body height 63 [in_i] 63 [in_i] MEDENT ([facility]) 5'3" Body weight 186.00 [lb_av] 186.00 [lb_av] MEDEN T ([facility]) Body surface area Derived from formula 1.88 m2 1.88 m2 MEDENT ([facility], ) Body weight 84.823 kg 84.823 kg MEDENT ([facility]) [place] body weight 115 [lb_av] 115 [lb_av] MEDEN T ([facility]) Body mass index (BMI) [Ratio] 33.1 kg/m2 33.1 k g/m2 [facility] ([facility]) Body weight 187.00 [lb_av] 187.00 [facility]_av[facility] Body height 63 [in_i] 63 [in_i] [facility] ([facility]) 5'3" Diastolic blood pressure 82 mm[Hg] 82 mm[Hg] [facility] ([facility]) Systolic blood pressure 128 mm[Hg] 128 [facility]Hg] [facility] Diastolic blood pressure 76 mm[Hg] 76 mm[Hg] eCW1 ([facility]) Systolic blood pressure 121 mm[Hg] 121 mm[Hg] e CW1 ([facility]) Body temperature 98.2 [degF] 98.2 [degF] eCW1 ( [facility]) Respiratory rate 18 /min 18 /min eCW1 [facility] Heart rate 74 /min 74 /min eCW1 ([facility]) Body mass index (BMI) [Ratio] 34.55 kg/m2 34.55 kg/m2 W1 ([facility]) Body height 62.5 [in_i] 62.5 [in_i] eCW1 ([facility]) Body weight 192 [lb_av] 192 [lb_av] eCW1 ([facility]) Systolic blood pressure 132 mm[Hg] 132 mm[Hg] e CW1 ([facility]) Body temperature 98 [degF] 98 [degF] eCW1 ([facility]) Respiratory rate 18 /min 18 /min eCW1 ([facility]) Heart rate 78 /min 78 /min eCW1 (Critical access hospital) Body mass index (BMI) [Ratio] 35.63 kg/m2 35.63 kg/m2 W1 ([facility]) Body height 62.5 [in_i] 62.5 [in_i] eCW1 ([facility]) Body weight 198 [lb_av] 198 [lb_av] eCW1 ([facility]) Diastolic blood pressure 72 mm[Hg] 72 mm[Hg] eCW1 ([facility]) Diastolic blood pressure--sitting 80 mm[Hg] 80 mm[Hg] MEDENT ([facility]) large cuff/Ra Systolic blood pressure--sitting 106 mm[Hg] 106 mm[Hg] MEDENT ([facility]) large cuff/Ra Heart rate 76 /min 76 /min MEDENT ([facility] Body mass index (BMI) [Ratio] 33.8 kg/m2 33.8 k g/m2 MEDENT ([facility]) Body height 63 [in_i] 63 [in_i] MEDENT ([facility]) 5'3" Body weight 191.00 [lb_av] 191.00 [lb_av] MEDEN T ([facility]) Diastolic blood pressure 82 mm[Hg] 82 mm[Hg] eCW1 ([facility]) Systolic blood pressure 127 mm[Hg] 127 mm[Hg] e CW1 ([facility]) Body temperature 98 [degF] 98 [degF] eCW1 ([facility]) Respiratory rate 18 /min 18 /min eCW1 ([facility]) Heart rate 82 /min 82 /min eCW1 ([facility] hospital) Body mass index (BMI) [Ratio] 35.17 kg/m2 35.17 kg/m2 eCW1 ([facility]) Body height 62.5 [in_us] 62.5 [in_us] eCW1 ([facility]) Body weight Measured 195.4 [lb_av] 195.4 [lb_av ] eCW1 ([facility])
--- OUTSIDE RECORDS SUMMARY | 2020-05-14 11:19 | CCD | Continuity of Care Document ---
Author Author Hellen OLVERA RPA-C Organization Unknown Address [address], [address] [place] [address] Phone [phone] Care Team Providers Care Industrial Production Manager Name Role Phone Navjot Erazo M.D. AUTM [phone] Geraldine Forde AUTM Problems Active Problems Provider Date Essential hypertension Celestine Cleaning M.D. Onset: 3 Gallbladder calculus with acute cholecystitis and no o bstruction Celestine Cleaning M.D. Onset: 04/13/2012 Incisional hernia Celestine Cleaning M.D. Onset: 04/13/2012 Unilateral recurrent simple inguinal hernia Celestine Cleaning M.D. Onset: 04/13/2012 Allergic asthma without status asthmaticus MEMO [place] Onset: 03/21/2020 Social History Type Date Description [...] daily. 510units R19.4 Shorty Gupta MD 03/21/2020 Atenolol 50mg [...] lb BMI (Body Mass Index) 33.1 kg/m2 [place] Body Weight 115 lb Weight 84.823 kg BSA (Body Surface Area) 1.88 m2 07/28/2017 1:21pm BP Systolic 122 mmHg BP Diastolic 80 mmHg Height 63 inches 5'3" Weight 184.00 lb BMI (Body Mass Index) 32.6 kg/m2 [place] Body Weight 115 lb Weight 83.462 kg BSA (Body Surface Area) 1.87 m2 Results Description No Information Available Procedures Description No Information Available Medical Devices Description No Information Available Encounters Description No Information Available Assessments Date Code Description Provider 03/21/2020 K21.9 Gastro-esophageal reflux disease without esophagitis Brandy Goodman MEMO [place] 03/21/2020 R10.13 Epigastric pain Brandy A MEMO [place] 03/21/2020 R19.4 Change in bowel habit Brandy Goodman MEMO [place] 03/21/2020 R14.0 Abdominal distension (gaseous) M ashlyn MEMO [place] Plan of Treatment 03/21/2020 - BrandyMEMO Palafox* K21.9 Gastro-esophageal reflux disease without esophagitis * R10.13 Epigastric pain * R19.4 Change in bowel habit * R14.0 Abdominal distension (gaseous) * * New Medication:* Protonix 40 mg * New Orders:* Endoscopy, Ordered: 03/21/20 * Follow up:* 2 weeks after procedures, sooner if needed. Functional Status Description No Information Available Mental Status Description No Information Available Referrals Refer to Dr Reason for Referral Status Appt Date Shorty Gupta MD [facility] Scheduled 03/01/2020 [facility], Gastroenterology [address], [address] [place] [id number] [phone]
[2020-05-14] MEDS ORDERED: LIDOCAINE 2% 100MG/5ML SDV (FOR ANES.) As Ordered ONE (12:21)
[2020-05-14] MEDS ORDERED: fentaNYL 100 MCG/2 ML INJECTION (J3010) As Ordered ONE (12:21)
[2020-05-14] MEDS ORDERED: propofoL 500 MG/50 ML VIAL As Ordered ONE (12:22)
--- NOTE | 2020-05-14 13:23 | ROOR ---
Patient Name: Hellen Betts Procedure Date: 05/14/2020 1:10 PM Date of : 1965 Age: 54 Room: [facility] Gender: Female Note Status: Finalized Procedure: Upper GI endoscopy Indications: Epigastric abdominal pain, Heartburn Providers: Shorty GUPTA MD Referring MD: Navjot Erazo MD Requesting Provider: Medicines: Monitored Anesthesia Care Complications: No immediate complications. Procedure: Pre-Anesthesia Assessment: - The heart rate, respiratory rate, oxygen saturations, blood pressure, adequacy of pulmonary ventilation, and response to care were monitored throughout the procedure. The Endoscope was introduced through the mouth, and advanced to the second part of duodenum. The upper GI endoscopy was accomplished without difficulty. The patient tolerated the procedure well. Findings: The esophagus was normal. The stomach was normal. The examined duodenum was normal. Impression: - Normal esophagus. - Normal stomach. - Normal examined duodenum. - No specimens collected. Recommendation: - Continue present medications. - Observe patient's clinical course. - Follow an antireflux regimen. Procedure Code(s): --- Professional --- 31402, Esophagogastroduodenoscopy, flexible, transoral; diagnostic, including collection of specimen(s) by brushing or washing, when performed (separate procedure) Diagnosis Code(s): --- Professional --- R12, Heartburn R10.13, Epigastric pain CPT copyright 2019 [employer]. All rights reserved. The codes documented in this report are preliminary and upon manager of supply chain review may be revised to meet current compliance requirements. Shorty Gupta MD Shorty GUPTA MD 05/14/2020 1:22:44 PM Electronically signed by Shorty GUPTA MD Number of Addenda: 0 Note Initiated On: 05/14/2020 1:10 PM Estimated Blood Loss: Estimated blood loss: none.
--- NOTE | 2020-05-14 13:46 | ROOR ---
Patient Name: Hellen Betts Procedure Date: 05/14/2020 1:11 PM Date of : 1965 Age: 54 Room: [facility] Gender: Female Note Status: Finalized Procedure: Colonoscopy Indications: Change in bowel habits Providers: Shorty GUPTA MD Referring MD: Navjot Erazo MD Requesting Provider: Medicines: Monitored Anesthesia Care Complications: No immediate complications. Procedure: Pre-Anesthesia Assessment: - The heart rate, respiratory rate, oxygen saturations, blood pressure, adequacy of pulmonary ventilation, and response to care were monitored throughout the procedure. The Colonoscope was introduced through the anus and advanced to 10 cm into the ileum. The colonoscopy was performed without difficulty. The patient tolerated the procedure well. The quality of the bowel preparation was fair. Findings: The perianal and digital rectal examinations were normal. Three sessile polyps were found in the sigmoid colon, splenic flexure and cecum. The polyps were diminutive in size. These polyps were removed with a cold snare. Resection and retrieval were complete. Multiple small and large-mouthed diverticula were found in the sigmoid colon. There was evidence of diverticular spasm. Internal hemorrhoids were found during retroflexion. The hemorrhoids were medium-sized. The exam was otherwise without abnormality on direct and retroflexion views. Impression: - Preparation of the colon was fair. - Three diminutive polyps in the sigmoid colon, at the splenic flexure and in the cecum, removed with a cold snare. Resected and retrieved. - Moderate diverticulosis in the sigmoid colon. There was evidence of diverticular spasm. - Internal hemorrhoids. - The examination was otherwise normal on direct and retroflexion views. Recommendation: - Repeat colonoscopy in 3 years because the bowel preparation was suboptimal. Procedure Code(s): --- Professional --- 43034, Colonoscopy, flexible; with removal of tumor(s), polyp(s), or other lesion(s) by snare technique Diagnosis Code(s): --- Professional --- K57.30, Diverticulosis of large intestine without perforation or abscess without bleeding R19.4, Change in bowel habit K63.5, Polyp of colon K64.8, Other hemorrhoids CPT copyright 2019 [employer]. All rights reserved. The codes documented in this report are preliminary and upon commercial loan processor review may be revised to meet current compliance requirements. Shorty Gupta MD Shorty GUPTA MD 05/14/2020 1:46:10 PM Electronically signed by Shorty GUPTA MD Number of Addenda: 0 Note Initiated On: 05/14/2020 1:11 PM Estimated Blood Loss: Estimated blood loss: none.
[2020-05-14 14:17] VITALS: BP 140/63
== END 2020-05-14 14:18 | disposition home or self-care (01) ==
LOC: M OPP 11:11
PROVIDERS: ATTEND Internal Medicine Gastroenterology
DX: R19.4 Change in bowel habit (principal); R10.13 Epigastric pain; K63.5 Polyp of colon; K57.30 Diverticulosis of large intestine without perforation or abscess without bleeding; K64.8 Other hemorrhoids; I10 Essential (primary) hypertension; E78.5 Hyperlipidemia, unspecified; M19.90 Unspecified osteoarthritis, unspecified site; F41.9 Anxiety disorder, unspecified; F32.9 Major depressive disorder, single episode, unspecified; K21.9 Gastro-esophageal reflux disease without esophagitis; K40.90 Unilateral inguinal hernia, without obstruction or gangrene, not specified as recurrent; G43.909 Migraine, unspecified, not intractable, without status migrainosus; J45.909 Unspecified asthma, uncomplicated; F17.210 Nicotine dependence, cigarettes, uncomplicated; Z79.899 Other long term (current) drug therapy; Z82.69 Family history of other diseases of the musculoskeletal system and connective tissue; Z82.49 Family history of ischemic heart disease and other diseases of the circulatory system; Z83.6 Family history of other diseases of the respiratory system; Z80.8 Family history of malignant neoplasm of other organs or systems
CPT/HCPCS: 43235; 45385; 88305; J3010

== ENCOUNTER → 2020-09-03 | Outpatient (CLI) | payer OTHER ==
[~2020-09-03] MED LIST changes: -NS 1,000 ML IV ONE
--- NOTE | 2020-09-03 10:33 | REPVR ---
PROCEDURE INFORMATION: Exam: CT Maxillofacial Without Contrast, Sinus Exam date and time: 09/03/2020 10:19 AM Age: 54 years old Clinical indication: Sinusitis; Chronic; Additional info: Chronic pansinusitis TECHNIQUE: Imaging protocol: CT Maxillofacial without contrast. Focus on the sinuses. Radiation optimization: All CT scans at this facility use at least one of these dose optimization techniques: automated exposure control; mA and/or kV adjustment per patient size (includes targeted exams where dose is matched to clinical indication); or iterative reconstruction. COMPARISON: CT Head without contrast 10/02/2017 5:36 PM FINDINGS: Frontal sinuses: Normal. No air-fluid levels. Ethmoid air cells: Normal. No air-fluid levels. Sphenoid sinuses: Normal. No air-fluid levels. Maxillary sinuses: Normal. No air-fluid levels. Ostiomeatal units are patent. Nasal cavity/Septum: Unremarkable. Orbital cavity: Orbits are normal. Globes are unremarkable. Bones/joints: There may be chronic pain syndrome but there is no evidence of acute or chronic sinus disease. There is no evidence of TMJ arthritis. Soft tissues: Unremarkable. Dental: There are several absent teeth but no evidence of active maxillary dental disease. IMPRESSION: 1. There may be chronic pain syndrome but there is no evidence of acute or chronic sinus disease. 2. There is no evidence of TMJ arthritis. 3. There are several absent teeth but no evidence of active maxillary dental disease. Electronically signed by: Otilio Banda On 09/03/2020 10:33:09 AM
== END ==
LOC: M RAD 10:08
PROVIDERS: ATTEND Otolaryngology
DX: J32.4 Chronic pansinusitis (principal)

== ENCOUNTER 2020-10-28 09:36 | Emergency (ER) | payer OTHER ==
[~2020-10-28] VITALS: Ht 160 cm; Wt 82.2 kg
[~2020-10-28 09:36] MED LIST changes: +OMEP40CA4 PO; -OMEP40CA97 PO
[2020-10-28] MEDS ORDERED: TOPI25TA10 (09:47)
--- NOTE | 2020-10-28 11:17 | REP ---
INDICATION: HYPERTENSIVE URGENCY/EMERGENCY COMPARISON: 05/16/2019. TECHNIQUE: PA/Lateral FINDINGS: Lungs: Clear, no infiltrate. Heart: Normal in size. Mediastinum: Mediastinal silhouette unremarkable. Pleural angles: Unremarkable.. Bones and soft tissues: Unremarkable. IMPRESSION: No acute pulmonary disease. <Electronically signed by Wiley Ramesh > 10/28/20 111
--- NOTE | 2020-10-28 11:19 | REP ---
INDICATION: HYPERTENSIVE URGENCY/EMERGENCY. COMPARISON: 10/02/2017 TECHNIQUE: CT BRAIN PERFORMED IN THE AXIAL PLANE. CORONAL RECONSTRUCTION IMAGES ARE PERFORMED. FINDINGS: THE VENTRICLES ARE NORMAL IN SIZE AND POSITION. THERE IS NO MIDLINE SHIFT OR MASS EFFECT. SHELLEY-WHITE DIFFERENTIATION IS WELL MAINTAINED. THERE IS NO ACUTE INTRACRANIAL HEMORRHAGE OR EXTRA-AXIAL FLUID COLLECTION. BONE WINDOW EXAMINATION IS UNREMARKABLE. VISUALIZED MASTOID AIR CELLS AND PARANASAL SINUSES ARE CLEAR. IMPRESSION: NEGATIVE NONCONTRAST CT BRAIN. <Electronically signed by Amari Wylie > 10/28/20 1117
[2020-10-28 11:36] VITALS: BP 132/80
[2020-10-28 11:36] LABS: HEMATOCRIT 46.8 % (36.0-47.0); HEMOGLOBIN 16.2 g/dl (12.0-15.5); MEAN CORPUSCULAR HGB CONC 34.6 g/dl (32.0-36.5); MEAN CORPUSCULAR VOLUME 92.3 fl (80.0-96.0); PLATELET COUNT, AUTOMATED 353 10^3/uL (150-450); RED BLOOD COUNT 5.07 10^6/uL (4.00-5.40); WHITE BLOOD COUNT 17.8 10^3/uL (4.0-10.0)
[2020-10-28] MEDS ORDERED: LABETALOL 100MG/20ML VIAL IV STA (11:36)
[2020-10-28 11:48] LABS: HCG, SERUM QUALITATIVE NEGATIVE (NEGATIVE)
[2020-10-28 12:02] LABS: AMPHETAMINES LEVEL URINE NEGATIVE (NEGATIVE); BARBITURATES URINE NEGATIVE (NEGATIVE); BENZODIAZEPINES URINE NEGATIVE (NEGATIVE); CANNABINOIDS URINE POSITIVE (NEGATIVE); COCAINE METABOLITE URINE NEGATIVE (NEGATIVE); METHADONE URINE NEGATIVE (NEGATIVE); OPIATES URINE NEGATIVE (NEGATIVE); PHENCYCLIDINE URINE NEGATIVE (NEGATIVE)
[2020-10-28 12:05] LABS: ACETAMINOPHEN LEVEL < 2.0 UG/ML (10.0-30.0); ALBUMIN 4.1 GM/DL (3.2-5.2); ALT/SGPT 33 U/L (12-78); BILIRUBIN,DIRECT 0.1 MG/DL (0.0-0.2); BILIRUBIN,TOTAL 0.6 MG/DL (0.2-1.0); BLOOD UREA NITROGEN 14 MG/DL (7-18); CALCIUM LEVEL 9.8 MG/DL (8.5-10.1); CARBON DIOXIDE LEVEL 23 MEQ/L (21-32); CHLORIDE LEVEL 104 MEQ/L (98-107); CK-MB VALUE MASS 1.3 NG/ML (<3.6); CPK CREATINE PHOSPHOKINASE 217 U/L (26-192); CREATININE FOR GFR 1.01 MG/DL (0.55-1.30); ETHYL ALCOHOL (ETHANOL) < 0.003 % (0.000-0.010); GLOMERULAR FILTRATION RATE > 60.0 (>51); GLUCOSE, FASTING 104 MG/DL (70-100); POTASSIUM SERUM 4.1 MEQ/L (3.5-5.1); SALICYLATE LEVEL 3.9 MG/DL (5.0-30.0); SODIUM LEVEL 138 MEQ/L (136-145); TOTAL PROTEIN 7.8 GM/DL (6.4-8.2)
[2020-10-28 13:35] VITALS: BP 142/82
--- NOTE | 2020-10-28 21:58 | ECGEPIP ---
[facility] - ED Test Date: 2020-10-28 Pat Name: COLLEEN ESQUIVEL Department: Room: - Gender: Female Motivational Speaker: : 1965 Requested By: Jennifer Goodman PA-C Order Number: [id number] Reading MD: Shorty Hoover Measurements Intervals [place] Rate: 91 P: 65 [place]: 150 QRS: 16 QRSD: 92 T: 30 QT: 364 QTc: 447 Interpretive Statements Normal sinus rhythm Possible Left atrial enlargement Incomplete right bundle branch block Nonspecific ST-T wave abnormalities Similar to tracing done 04-10-14 Electronically Signed on 10-28-2020 21:58:24 EDT by Shorty Hoover
[2020-10-29] MEDS ORDERED: AZEL1SPR3 NARES (17:17)
[2020-10-29] MEDS ORDERED: SPIR1TAB34 PO (17:17)
[2020-10-29] MEDS ORDERED: FLUC150T PO (17:17)
[2020-10-29] MEDS ORDERED: HYDR-643 PO (17:17)
== END 2020-10-28 13:36 | disposition home or self-care (01) ==
LOC: M ED 09:36
DX: F32.9 Major depressive disorder, single episode, unspecified (principal); D72.829 Elevated white blood cell count, unspecified; I45.19 Other right bundle-branch block; I10 Essential (primary) hypertension; E78.5 Hyperlipidemia, unspecified; J45.909 Unspecified asthma, uncomplicated; G43.909 Migraine, unspecified, not intractable, without status migrainosus; K21.9 Gastro-esophageal reflux disease without esophagitis; F41.9 Anxiety disorder, unspecified; M54.9 Dorsalgia, unspecified; F17.200 Nicotine dependence, unspecified, uncomplicated; F12.10 Cannabis abuse, uncomplicated; Z79.899 Other long term (current) drug therapy

== ENCOUNTER 2020-10-29 03:25 | Inpatient (IN) | payer OTHER ==
[~2020-10-29] VITALS: Ht 160 cm; Wt 84.0 kg
[~2020-10-29 03:25] MED LIST changes: +TOPI25TA10
[2020-10-29] MEDS ORDERED: NS 1,000 ML IV ONE (03:45)
[2020-10-29] MEDS ORDERED: LORazepam 2 MG/ML VIAL IM ONE (04:00)
[2020-10-29] MEDS ORDERED: diphenhydrAMINE 50MG/ML VIAL (J1200) IM ONE (04:00)
[2020-10-29] MEDS ORDERED: HALOPERIDOL 5MG/ML VIAL (J1630 PER 1) IM ONE (04:00)
[2020-10-29] MEDS ORDERED: LORazepam 2 MG/ML VIAL IV STA (04:08)
[2020-10-29] MEDS ORDERED: LORazepam 2 MG/ML VIAL As Ordered ONE (04:09)
[2020-10-29 04:10] LABS: BASO # 0.1 10^3/uL (0.0-0.2); BASO % 0.5 % (0.0-1.0); EOS # 0.2 10^3/uL (0.0-0.5); EOS % 1.2 % (0.0-3.0); HEMATOCRIT 46.4 % (36.0-47.0); HEMOGLOBIN 15.8 g/dl (12.0-15.5); LYMPH # 5.3 10^3/uL (1.5-5.0); LYMPH % 31.8 % (24.0-44.0); MEAN CORPUSCULAR HEMOGLOBIN 31.8 pg (27.0-33.0); MEAN CORPUSCULAR HGB CONC 34.1 g/dl (32.0-36.5); MEAN CORPUSCULAR VOLUME 93.4 fl (80.0-96.0); MONO # 1.8 10^3/uL (0.0-0.8); MONO % 10.4 % (2.0-8.0); NEUTROPHILS # 9.4 10^3/uL (1.5-8.5); NEUTROPHILS % 55.7 % (36.0-66.0); PLATELET COUNT, AUTOMATED 356 10^3/uL (150-450); RED BLOOD COUNT 4.97 10^6/uL (4.00-5.40); VENOUS BASE EXCESS -0.3 (-2.0-2.0); VENOUS HCO3 24.3 MEQ/L (23.0-27.0); VENOUS O2 SATURATION 93.7 % (60.0-80.0); VENOUS PARTIAL PRESSURE CO2 40.1 mmHg (38.0-50.0); VENOUS PARTIAL PRESSURE O2 63.1 mmHg (30.0-50.0); VENOUS PH 7.401 UNITS (7.330-7.430); VENOUS STANDARD HCO3 24.1 MEQ/L; VENOUS TOTAL CO2 25.6 MEQ/L (24.0-28.0)
[2020-10-29 04:47] LABS: BLOOD UREA NITROGEN 17 MG/DL (7-18); CARBON DIOXIDE LEVEL 27 MEQ/L (21-32); CHLORIDE LEVEL 105 MEQ/L (98-107); CREATININE FOR GFR 1.13 MG/DL (0.55-1.30); GLOMERULAR FILTRATION RATE 53.6 (>51); GLUCOSE, FASTING 101 MG/DL (70-100); POTASSIUM SERUM 3.7 MEQ/L (3.5-5.1); SODIUM LEVEL 141 MEQ/L (136-145)
[2020-10-29 04:48] LABS: ALBUMIN 4.3 GM/DL (3.2-5.2); ALT/SGPT 34 U/L (12-78); BILIRUBIN,DIRECT 0.2 MG/DL (0.0-0.2); BILIRUBIN,TOTAL 0.5 MG/DL (0.2-1.0); CALCIUM LEVEL 9.8 MG/DL (8.5-10.1); CK-MB VALUE MASS 2.8 NG/ML (<3.6); CPK CREATINE PHOSPHOKINASE 373 U/L (26-192); MB/CK RELATIVE INDEX 0.75 (< OR =4); SALICYLATE LEVEL 4.6 MG/DL (5.0-30.0); TOTAL PROTEIN 8.2 GM/DL (6.4-8.2); TROPONIN I < 0.02 NG/ML (< 0.10)
[2020-10-29 04:49] LABS: ACETAMINOPHEN LEVEL < 2.0 UG/ML (10.0-30.0); ETHYL ALCOHOL (ETHANOL) < 0.003 % (0.000-0.010)
[2020-10-29 04:52] LABS: WHITE BLOOD COUNT 16.8 10^3/uL (4.0-10.0)
--- NOTE | 2020-10-29 05:16 | REPVR ---
PROCEDURE INFORMATION: Exam: CT Head Without Contrast Exam date and time: 10/29/2020 3:41 AM Age: 54 years old Clinical indication: Altered mental status/memory loss; Confusion or disorientation TECHNIQUE: Imaging protocol: Computed tomography of the head without contrast. Radiation optimization: All CT scans at this facility use at least one of these dose optimization techniques: automated exposure control; mA and/or kV adjustment per patient size (includes targeted exams where dose is matched to clinical indication); or iterative reconstruction. COMPARISON: CT Head without contrast 10/28/2020 10:57 AM FINDINGS: Brain: Normal. No hemorrhage. Unremarkable white matter. No mass effect. Cerebral ventricles: No ventriculomegaly. Paranasal sinuses: Visualized sinuses are unremarkable. No fluid levels. Mastoid air cells: Visualized mastoid air cells are well aerated. Bones/joints: Unremarkable. No acute fracture. Soft tissues: Unremarkable. IMPRESSION: Negative noncontrast head CT without change from 10/28/2020. Electronically signed by: Aneesh Zamorano On 10/29/2020 05:15:31 AM
[2020-10-29 09:48] LABS: AMPHETAMINES LEVEL URINE NEGATIVE (NEGATIVE); BARBITURATES URINE NEGATIVE (NEGATIVE); BENZODIAZEPINES URINE NEGATIVE (NEGATIVE); CANNABINOIDS URINE POSITIVE (NEGATIVE); COCAINE METABOLITE URINE NEGATIVE (NEGATIVE); METHADONE URINE NEGATIVE (NEGATIVE); OPIATES URINE NEGATIVE (NEGATIVE); PHENCYCLIDINE URINE NEGATIVE (NEGATIVE)
[2020-10-29] MEDS ORDERED: SPIR1TAB34 PO (17:17)
[2020-10-29] MEDS ORDERED: AZEL1SPR3 NARES (17:17)
[2020-10-29] MEDS ORDERED: HYDR-643 PO (17:17)
[2020-10-29] MEDS ORDERED: FLUC150T PO (17:17)
[2020-10-29] MEDS ORDERED: ATORVASTATIN 20 MG TAB PO ONE (17:40)
[2020-10-29] MEDS ORDERED: PANTOPRAZOLE 40MG TAB (PROTONIX) PO ONE (17:40)
[2020-10-29] MEDS ORDERED: atenoloL 50 MG TAB PO ONE (17:40)
[2020-10-29] MEDS ORDERED: VENLAFAXINE 37.5 MG TAB PO ONE (17:40)
[2020-10-29] MEDS ORDERED: SPIRONOLACTONE 25 MG TAB PO ONE (17:40)
[2020-10-29] MEDS ORDERED: IBUPROFEN 600MG TAB PO ONE (17:55)
[2020-10-30] MEDS ORDERED: ALBUTEROL 90 MCG/ACT 8GM HFA INHALER INH ONE ×2 (00:35→09:05)
[2020-10-30] MEDS ORDERED: **hydrALAZINE HCL** 25 MG TAB PO ONE (01:10)
[2020-10-30] MEDS: FLUTICASONE PROP 0.05% NASAL SPRAY 16 GM (FLONASE) NARES SCH ×3 (01:42→20:56)
[2020-10-30] MEDS ORDERED: hydrOXYzine 25 MG TAB PO ONE (01:45)
[2020-10-30] MEDS ORDERED: LORazepam 2 MG TAB PO STA ×2 (04:10→15:08)
[2020-10-30] MEDS ORDERED: OLANZapine ORAL DISINTEGRATING TAB 5MG PO ONE (04:10)
--- NOTE | 2020-10-30 05:08 | ECGEPIP ---
[facility] - ED Test Date: 2020-10-29 Pat Name: COLLEEN ESQUIVEL Department: Room: - Gender: Female Associate Curator: : 1965 Requested By: KASANDRA Kuo Order Number: [id number] Reading MD: Steve Muhammad Measurements Intervals [place] Rate: 72 P: 62 [place]: 156 QRS: 14 QRSD: 92 T: 23 QT: 410 QTc: 448 Interpretive Statements Normal sinus rhythm POSSIBLE LEFT ATRIAL ENLARGEMENT INCOMPLETE RIGHT BUNDLE BRANCH BLOCK SIMILAR TO 10/28/20 Electronically Signed on 10-30-2020 5:08:16 EDT by Steve Muhammad
[2020-10-30] MEDS ORDERED: atenoloL 50 MG TAB PO ONE (07:35)
[2020-10-30] MEDS ORDERED: CETIRIZINE (ZyrTEC) 10 MG TAB PO ONE (07:35)
[2020-10-30] MEDS ORDERED: PANTOPRAZOLE 40MG TAB (PROTONIX) PO ONE (07:35)
[2020-10-30] MEDS ORDERED: SPIRONOLACTONE 25 MG TAB PO ONE (07:35)
[2020-10-30] MEDS ORDERED: VENLAFAXINE **XR** 75MG CAPSULE PO ONE (07:40)
[2020-10-30 09:08] LABS: RSV AMPLIFICATION NEGATIVE (NEGATIVE)
[2020-10-30] MEDS ORDERED: VENTAER INH (09:12)
[2020-10-30] MEDS ORDERED: NICOTINE 21MG/24HR 1 EA TRANSDERMAL TD ONE (15:10)
[2020-10-30] MEDS ORDERED: ACETAMINOPHEN TAB 650MG DOSE (2X325MG) PO PRN (15:20)
[2020-10-30 17:40] VITALS: BP 136/78
[2020-10-30] MEDS: PALIPERIDONE 3 MG ER TAB (INVEGA) PO SCH (20:59)
[2020-10-30] MEDS: traZODone 50 MG TAB PO PRN (21:14)
[2020-10-30] MEDS: CETIRIZINE (ZyrTEC) 10 MG TAB PO SCH (22:50)
[2020-10-30] MEDS: ALBUTEROL 90 MCG/ACT 8GM HFA INHALER INH PRN (23:38)
[2020-10-30] MEDS: IBUPROFEN 600MG TAB PO PRN (23:38)
[2020-10-31] MEDS: OLANZapine ORAL DISINTEGRATING TAB 5MG PO PRN (02:00)
[2020-10-31] MEDS ORDERED: HALOPERIDOL 5MG/ML VIAL (J1630 PER 1) IM STA (03:02)
[2020-10-31] MEDS ORDERED: diphenhydrAMINE 50MG/ML VIAL (J1200) IV STA (03:02)
[2020-10-31] MEDS ORDERED: LORazepam 2 MG/ML VIAL IM STA (03:02)
[2020-10-31 04:03] VITALS: BP 153/68
[2020-10-31] MEDS: CETIRIZINE (ZyrTEC) 10 MG TAB PO SCH ×2 (09:00→15:46)
[2020-10-31] MEDS: NICOTINE 21MG/24HR 1 EA TRANSDERMAL TD SCH (09:00)
[2020-10-31] MEDS: FLUTICASONE PROP 0.05% NASAL SPRAY 16 GM (FLONASE) NARES SCH ×2 (09:00→15:44)
[2020-10-31] MEDS: ALBUTEROL 90 MCG/ACT 8GM HFA INHALER INH PRN ×2 (12:11→20:49)
[2020-10-31] MEDS: DIVALPROEX 250 MG TAB PO SCH ×2 (12:49→20:48)
[2020-10-31] MEDS: VENLAFAXINE **XR** 75MG CAPSULE PO SCH (12:49)
--- NOTE | 2020-10-31 12:49 | MHHPE ---
[facility] HISTORY AND PHYSICAL DATE OF ADMISSION: 10/30/2020 IDENTIFYING DATA: She is a 54-year-old female, single, , , mother of three children, living by herself. She was admitted because of bizarre behavior. CHIEF COMPLAINT: "I have medical issues. I don't have input into this unit." HISTORY OF PRESENT ILLNESS: According to the statement by emergency medical services (EMS), patient was pulled over by the police, as she was erratic, and she was violating traffic rules, and she was behaving irrationally. Complains of not sleeping for the last 3 days and having muscle cramps. In the emergency room (ER) she was agitated and was bizarre. Reportedly, she was responding to the internal stimuli. During my evaluation, she was more coherent. She denied that she was irrational; however, she has a long history of mental illness. She has been on Effexor XR for over 30 years. She reports that if the dose is more than 150 mg, she goes into manic episodes. Current stressors are the mold in the house. She wanted to stay in her father's house before mold is cleaned up. PAST PSYCHIATRIC HISTORY: This is her second psychiatric hospitalization. She reports she was hospitalized for 6 days in [facility] about 9 years ago. She has a history of hypomania, increased energy, pressured speech, sleeplessness. She denies any history of psychosis. Patient has a history of anxiety. In the past she used to have panic attacks, but currently she reports it is mostly vague anxiety, not situational. SUICIDAL HISTORY: Patient denies suicide attempts. DRUG/ALCOHOL HISTORY: Patient occasionally drinks alcohol; however, she uses cannabis every day. She was positive for cannabis during admission. LEGAL HISTORY: She denies legal problems. MEDICAL HISTORY: Patient has history of hypertension, bronchial asthma, gastroesophageal reflux disease (GERD). FAMILY HISTORY: Denies family history of mental illness. PERSONAL HISTORY: She was born and raised in [place]. She graduated from high school. Was raised by both parents. Reports she has no physical or sexual abuse. 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 She was once for about 8 years. They are for the last 20 years. She has three sons with different relationship. The youngest one lives with son's father. MENTAL STATUS EXAMINATION: Somewhat short appears stated age. Cooperative. Made good eye contact. Speech rate, rhythm, volume are good. Thought process linear, goal directed. Thought content: No evidence of any delusions. Denies any suicidal or homicidal ideas. Mood is somewhat happy. There is no pressured speech. Her insight and judgment are fair. Memory, immediate, remote, recent, is good. VITAL SIGNS: Temperature 98.7, pulse is 80, respiratory rate is 18, blood pressure is 153/68, pulse oximetry 97. REVIEW OF SYSTEMS: CONSTITUTIONAL: Negative for night sweats or weight loss. HEENT: Negative for epistaxis, headache. RESPIRATORY: No cough, no shortness of breath, no wheezing. CARDIOVASCULAR: Negative for chest pain, dyspnea. GASTROINTESTINAL: No abdominal pain. No change in bowel habits. GENITOURINARY: No dysuria, no trouble voiding, no hematuria. NEUROLOGIC: Negative for gait disturbances, numbness, tingling. MUSCULOSKELETAL: Bones and joints normal. DIAGNOSES: 1. Bipolar disorder, not otherwise specified, rule out major depressive disorder. 2. Anxiety disorder, not otherwise specified. PLAN: 1. Admit to inpatient mental health unit (IMHU). 2. Followup with chief clinical officer for medical needs. 3. Will be followed up by case management and professor of social work. 4. Patient will be placed on suicide precautions and 15-minute checks. 5. Patient will participate in appropriate activities, individual and group therapy. 6. Medication: Add Depakote ER 250 mg twice daily. Continue rest of the medication. 7. Serum valproic acid level at the time of discharge along with complete blood count (CBC) and hepatic function. We will contact her father to get some collateral information. ESTIMATED LENGTH OF STAY: 4-5 days. TIME SPENT: 45 minutes.
[2020-10-31 14:07] LABS: HEMATOCRIT 44.5 % (36.0-47.0); HEMOGLOBIN 15.4 g/dl (12.0-15.5); MEAN CORPUSCULAR HEMOGLOBIN 32.2 pg (27.0-33.0); MEAN CORPUSCULAR HGB CONC 34.6 g/dl (32.0-36.5); MEAN CORPUSCULAR VOLUME 92.9 fl (80.0-96.0); PLATELET COUNT, AUTOMATED 360 10^3/uL (150-450); RED BLOOD COUNT 4.79 10^6/uL (4.00-5.40); WHITE BLOOD COUNT 13.6 10^3/uL (4.0-10.0)
--- NOTE | 2020-10-31 15:12 | HPEPDOC ---
[facility] Medical History & Physical Date of Admission Oct 29, 2020 Date of Service: Oct 31, 2020 Attending Physician: IVANA POPE MD MPH History and Physical CHIEF COMPLAINT: Unspecified psychotic disorder HISTORY OF PRESENT ILLNESS: Ms. Betts is a 54 year old female with past medical history of anxiety and depression who was admitted to the [facility] after she was found in her car in an altered state after calling EMS. She was brought to the ED and was not found to have any acute medical condition as a cause for her alteration and delusions and was thus directly admitted to the [facility]. Ms. Betts reports several months of concern about black mold in her home causing infections in her lungs and on her skin. She states that the infection has been affecting her vocal cords and causing her to cough more. She does have a history of asthma and states that she has had to use her albuterol inhaler more frequently. She also reports palpitations where it feels as though her heart is racing. 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 REVIEW OF SYSTEMS: 10 point ROS was obtained and was unremarkable except as noted above. HOME MEDICATIONS: Please see below. PHYSICAL EXAMINATION: VITAL SIGNS: Reviewed GENERAL APPEARANCE: slightly disheveled overweight/obese female, NAD HEENT: EOMI, PERRLA, MMM with possible leukoplakia on tongue that scrapes off CARDIOVASCULAR: RRR no M/R/G LUNGS: CTAB, good inspiratory effort, no wheezing or crackles ABDOMEN: soft, non tender to palpation MUSCULOSKELETAL: no deformities EXTREMITIES: No appreciable rashes or lesions NEUROLOGICAL: AOx3 PSYCHIATRIC: pleasant, making good eye contact, denies visual and auditory hallucinations, fixated on mold in house and infections in lungs and on skin LABORATORY DATA: See below. IMAGING: CT Head: IMPRESSION: Negative noncontrast head CT without change from 10/28/2020. MICROBIOLOGY: Please see below. ASSESSMENT: Ms. Betts is a 54 year old female with history of anxiety, depression and asthma admitted to the [facility] for concern for acute episode of psychosis for which the hospitalist service has been consulted for recommendations regarding her chronic medical conditions. PLAN: # Acute Psychosis: This patient is admitted under the inpatient mental health unit, defer to the [facility] provider for all care plans regarding her primary reason for admission as well as the follow up recommended for her. # Palpitations: There was no evidence of EKG abnormalities on admission and patient has elevated TSH with normal T4 and normal vital signs since admission. At this time would not place on continuous telemetry, however she should follow up with her primary care provider to receive a 2 week holter monitor for further evaluation. Meds: None # Leukocytosis: This is without left shift and downtrending on repeat. Patient also is afebrile, normotensive, and without tachycardia. Should she have abnormal vital signs or evidence of systemic infection, would obtain additional studies and likely initiate antibiotics. Otherwise this can be followed up with her primary care provider upon discharge. # Oral thrush: Patient does have evidence of possible oral thrush versus partially swallowed food in mouth (leukoplakia was loose and easily moved with tongue blade) which is not caused by her concerns about black mold in her house. She denies recent steroids, does not take steroid medications for her asthma, and has not been on recent antibiotics. Will provide her with Nystatin swish and swallow. Meds: Nystatin swish and swallow # Asthma history: Patient has normal pulmonary exam. Will provide with PRN albuterol inhaler as well as obtain sputum cultures if she were to have a sputum. Otherwise depending on frequency of inhaler needs, would recommend having her follow up with her PCM to determined if she requires step up of treatment for her asthma. Meds: Albuterol HFA PRN Sputum cultures first morning sputum x3 # Tobacco use disorder: Patient was encouraged to stop smoking and has been given a topical nicoderm patch. # PAUL: Patient is at risk for PAUL and this also could be causing her palpitations. Have encouraged her to follow up with testing recommendations as per her PCM. # Obesity: Deconditioning could also be contributing to patient's reports of increased albuterol inhaler use. DISPO: [facility] DIET: regular DVT PROPHY: Ambulation CONSULTS: None DISCHARGE: Per Psychiatry Service Vital Signs Vital Signs Date Time Temp Pulse Resp B/P (MAP) Pulse Ox O2 Delivery O2 Flow Rate FiO2 10/31/20 04:03 98.7 80 18 153/68 (96) 97 Room Air Home Medications Scheduled Atenolol (Atenolol) 50 Mg Tab, 50 MG PO DAILY Atorvastatin Calcium (Lipitor) 80 Mg Tablet, 80 MG PO DAILY Azelastine HCl (Azelastine HCl) 0.1% Blaine.pump, 1 SPRAY NARES BID Cetirizine HCl (Cetirizine HCl) 10 Mg Tab, 10 MG PO DAILY Fluconazole (Fluconazole) 150 Mg Tablet, 150 MG PO ASDIRECTED TAKE ONE NOW, THEN REPEAT IN 3 DAYS Pantoprazole Sodium (Pantoprazole Sodium) 40 Mg Tablet.dr, 40 MG PO DAILY Spironolact/Hydrochlorothiazid (Spironolactone-Hctz 25-25 Tab) 1 Each Tablet, 1 TAB PO DAILY Venlafaxine HCl (Venlafaxine HCl ER) 150 Mg Cap.er.24h, 150 MG PO DAILY Scheduled PRN Albuterol Sulfate (Ventolin Hfa) 18 Gm Hfa.aer.ad, 2 PUFF INH Q4H PRN for SHORTNESS OF BREATH Hydroxyzine HCl (Hydroxyzine HCl) 10 Mg Tablet, 10 MG PO TID PRN for ANXIETY Ibuprofen (Motrin Ib) 200 Mg Tab, 600 MG PO Q4HP PRN for PAIN Allergies Coded Allergies: No Known Allergies (Unverified , 05/07/20) A-FIB/CHADSVASC A-FIB History Current/History of A-Fib/PAF?: No Current PO Anticoag Therapy: No Age/Risk Factor Scoring CHADSVASC: CHADSVASC Response (Comments) Value Age Risk Factor Age < 65 years old 0 Gender Risk Factor Female 1 Hx of CHF No 0 Hx of HTN Yes 1 Hx of Stroke/TIA/or VTE No 0 Hx of Diabetes No 0 Hx of Vascular Disease No 0 Total 2 Treatment Treatment ordered: NONE ([id number] vasc <2) IVANA POPE MD MPH Oct 31, 2020 08:34
[2020-10-31] MEDS: IBUPROFEN 600MG TAB PO PRN ×2 (15:48→20:48)
[2020-10-31 18:00] VITALS: BP 140/79
[2020-10-31] MEDS: AZELASTINE 137MCG NASAL SPY 30 ML (ASTELIN) SCH (20:48)
[2020-10-31] MEDS: PALIPERIDONE 3 MG ER TAB (INVEGA) PO SCH (20:48)
[2020-10-31] MEDS: NYSTATIN 500,000 U/5 ML SUSP UDC SS SCH (20:48)
[2020-10-31] MEDS: MAALOX 30 ML SUSP *UDC PO PRN (20:54)
[2020-10-31] MEDS: traZODone 50 MG TAB PO PRN (23:06)
[2020-11-01] MEDS: IBUPROFEN 600MG TAB PO PRN ×4 (00:59→19:13)
[2020-11-01] MEDS: MAALOX 30 ML SUSP *UDC PO PRN ×3 (01:00→20:12)
[2020-11-01] MEDS: ALBUTEROL 90 MCG/ACT 8GM HFA INHALER INH PRN ×4 (01:00→19:13)
[2020-11-01 06:24] VITALS: BP 151/82
[2020-11-01] MEDS: DIVALPROEX 250 MG TAB PO SCH ×2 (08:16→20:12)
[2020-11-01] MEDS: ATORVASTATIN 20 MG TAB PO SCH (08:16)
[2020-11-01] MEDS: CETIRIZINE (ZyrTEC) 10 MG TAB PO SCH (08:16)
[2020-11-01] MEDS: SPIRONOLACTONE 25 MG TAB PO SCH (08:16)
[2020-11-01] MEDS: PANTOPRAZOLE 40MG TAB (PROTONIX) PO SCH (08:16)
[2020-11-01] MEDS: VENLAFAXINE **XR** 75MG CAPSULE PO SCH (08:16)
[2020-11-01] MEDS: NYSTATIN 500,000 U/5 ML SUSP UDC SS SCH ×2 (08:17→20:12)
[2020-11-01] MEDS: AZELASTINE 137MCG NASAL SPY 30 ML (ASTELIN) SCH ×2 (08:17→20:12)
[2020-11-01] MEDS: NICOTINE 21MG/24HR 1 EA TRANSDERMAL TD SCH (08:17)
[2020-11-01] MEDS: atenoloL 50 MG TAB PO SCH (08:19)
--- NOTE | 2020-11-01 11:33 | MHIPNPDOC ---
[facility] Progress Note Progress Note DATE OF SERVICE: 11/01/20 Subjective: She reports that she has been doing well denies any side effects on the medications. And is ready to go. Objective: She is a 54-year-old female, single, , , mother of three children, living by herself. She was admitted because of bizarre behavior. According to the statement by emergency medical services (EMS), patient was pulled over by the police, as she was erratic, and she was violating traffic rules, and she was behaving irrationally. Complains of not sleeping for the last 3 days and having muscle cramps. In the emergency room (ER) she was agitated and was bizarre. Reportedly, she was responding to the internal stimuli. During my evaluation, she was more coherent. She denied that she was irrational; however, she has a long history of mental illness. She has been on Effexor XR for over 30 years. She reports that if the dose is more than 150 mg, she goes into manic episodes. Current stressors are the mold in the house. She wanted to stay in her father's house before mold is cleaned up. Currently patient is doing better, she was positive for cannabis, which might have caused some behavioral problems And the reason for her admission. Patient currently is more coherent, interacting with peers however continues to be depressed. Denies any side effects from the medications. MENTAL STATUS EXAMINATION: Somewhat short, appears stated age. Cooperative. Made good eye contact. Speech rate, rhythm, volume are good. Thought process linear, goal directed. Thought content: No evidence of any delusions. Denies any suicidal or homicidal ideas. Mood is depressed. There is no pressured speech. Her insight and judgment are fair. Memory, immediate, remote, recent, is good. Diagnosis: Bipolar bipolar disorder unspecified Rule out major depressive disorder Panic disorder without agoraphobia Cannabis use disorder Review of systems: denied any chest pain palpitation, denied cough or shortness of breath, Denied abdominal pain or dysuria, denied dizziness numbness or tingling. Plan continue current medications, consider discharging her on Wednesday., If the patient is stable. Estimated length of stay 2 days Time spent is 25 minutes. Vital Signs Vital Signs Date Time Temp Pulse Resp B/P (MAP) Pulse Ox O2 Delivery O2 Flow Rate FiO2 11/01/20 09:02 Room Air 7/23/21 08:19 97 181/84 11/01/20 06:24 97.1 18 95 Laboratory Data 24H Labs Laboratory Tests 2 10/31/20 13:46: Nucleated Red Blood Cells % (auto) 0.0, Free Thyroxine 0.93 CBC/BMP Laboratory Tests 10/31/20 13:46 Current Medications Current Medications Medications (Trade) Dose Ordered Sig/Joya Route PRN Reason Start Time Stop Time Status Last Admin Dose Admin Acetaminophen (Tylenol Tab) 650 mg Q6HP PRN PO HEADACHE or MILD DISCOMFORT 10/30/20 15:20 10/30/20 22:56 DC 10/30/20 21:41 Al Hydrox/Mg Hydrox/Simethicone (Mylanta) 30 ml Q4HP PRN PO HEARTBURN/INDIGESTION 10/30/20 15:20 11/01/20 01:00 Albuterol Sulfate (Proventil, Ventolin Hfa) 2 puff Q4H PRN INH SHORTNESS OF BREATH 10/30/20 22:50 11/01/20 07:20 Atenolol (Tenormin) 50 mg DAILY PO 11/01/20 09:00 11/01/20 08:19 Atorvastatin Calcium (Lipitor) 80 mg DAILY PO 11/01/20 09:00 11/01/20 08:16 Azelastine HCl (Astelin) 1 spray BID NA 10/31/20 21:00 11/01/20 08:17 Cetirizine HCl (ZyrTEC) 10 mg DAILY PO 10/30/20 22:50 11/01/20 08:16 Diphenhydramine HCl (Benadryl) 50 mg STAT STAT IV 10/31/20 03:02 10/31/20 03:05 DC 10/31/20 03:30 Divalproex Sodium (Depakote) 250 mg BID PO 10/31/20 09:00 11/01/20 08:16 Fluticasone Propionate (Flonase 0.05% Nasal Cash) 1 spray BID NARES 10/29/20 21:00 10/31/20 17:39 DC 10/31/20 15:44 Haloperidol (Haldol) 10 mg STAT STAT IM 10/31/20 03:02 10/31/20 03:05 DC 10/31/20 03:30 Home Med (Med Rec Complete!) ASDIRECTED XX 10/30/20 09:15 10/30/20 09:15 DC Hydrochlorothiazide (Hydrodiuril) 25 mg DAILY PO 11/01/20 09:00 11/01/20 08:17 Ibuprofen (Advil) 600 mg Q4HP PRN PO P 10/30/20 22:50 11/01/20 07:21 Lorazepam (Ativan) 2 mg STAT STAT IM 10/31/20 03:02 10/31/20 03:05 DC 10/31/20 03:30 Lorazepam (Ativan) 2 mg STAT STAT IV 10/29/20 04:08 10/29/20 04:09 DC 10/29/20 04:11 Lorazepam (Ativan) 2 mg STAT STAT PO 10/30/20 04:10 10/30/20 04:11 DC 10/30/20 04:24 Lorazepam (Ativan) 2 mg STAT STAT PO 10/30/20 15:08 10/30/20 15:09 DC 10/30/20 15:13 Magnesium Hydroxide (Milk Of Magnesia) 30 ml DAILYPRN PRN PO CONSTIPATION 10/30/20 15:20 Nicotine (Nicoderm Cq 21mg) 1 patch DAILY TD 10/31/20 09:00 11/01/20 08:17 Nystatin (Mycostatin) 5 ml BID SS 10/31/20 21:00 11/10/20 20:59 11/01/20 08:17 Olanzapine (ZyPREXA ZYDIS) 5 mg Q6HP PRN PO AGITATION 10/30/20 15:20 10/31/20 02:00 Paliperidone (Invega) 3 mg QHS PO 10/30/20 21:00 10/31/20 20:48 Pantoprazole Sodium (Protonix) 40 mg DAILY PO 11/01/20 09:00 11/01/20 08:16 Spironolactone (Aldactone) 25 mg QAM PO 11/01/20 09:00 11/01/20 08:16 Trazodone HCl (Desyrel) 50 mg QHSP PRN PO INSOMNIA 10/30/20 15:20 10/31/20 23:06 Venlafaxine HCl (Effexor Xr) 150 mg DAILY PO 10/31/20 09:00 11/01/20 08:16 Allergies Coded Allergies: No Known Allergies (Unverified , 05/07/20) YENI HERNANDEZ MD Nov 01, 2020 11:33
[2020-11-01 18:00] VITALS: BP 131/83
[2020-11-01] MEDS: MOM 30ML SUSPENSION UDC PO PRN (19:13)
[2020-11-01] MEDS: PALIPERIDONE 3 MG ER TAB (INVEGA) PO SCH (20:12)
[2020-11-01] MEDS: traZODone 50 MG TAB PO PRN (21:27)
[2020-11-02] MEDS: IBUPROFEN 600MG TAB PO PRN ×4 (00:11→20:38)
[2020-11-02] MEDS: MAALOX 30 ML SUSP *UDC PO PRN ×3 (00:39→20:39)
[2020-11-02] MEDS: OLANZapine ORAL DISINTEGRATING TAB 5MG PO PRN ×3 (02:35→17:06)
[2020-11-02] MEDS: ALBUTEROL 90 MCG/ACT 8GM HFA INHALER INH PRN ×4 (02:35→20:39)
[2020-11-02] MEDS ORDERED: LORazepam 0.5 MG TAB PO ONE (04:00)
[2020-11-02] MEDS ORDERED: OLANZapine ORAL DISINTEGRATING TAB 5MG PO ONE (04:00)
[2020-11-02 05:00] VITALS: BP 180/98
[2020-11-02] MEDS: AZELASTINE 137MCG NASAL SPY 30 ML (ASTELIN) SCH ×2 (09:45→20:37)
[2020-11-02] MEDS: NYSTATIN 500,000 U/5 ML SUSP UDC SS SCH ×2 (09:46→20:38)
[2020-11-02] MEDS: NICOTINE 21MG/24HR 1 EA TRANSDERMAL TD SCH (09:46)
[2020-11-02] MEDS: ATORVASTATIN 20 MG TAB PO SCH (09:47)
[2020-11-02] MEDS: DIVALPROEX 250 MG TAB PO SCH ×2 (09:47→20:39)
[2020-11-02] MEDS: PANTOPRAZOLE 40MG TAB (PROTONIX) PO SCH (09:48)
[2020-11-02] MEDS: VENLAFAXINE **XR** 75MG CAPSULE PO SCH (09:50)
[2020-11-02] MEDS: CETIRIZINE (ZyrTEC) 10 MG TAB PO SCH (09:50)
[2020-11-02] MEDS: atenoloL 50 MG TAB PO SCH (09:50)
[2020-11-02] MEDS: SPIRONOLACTONE 25 MG TAB PO SCH (09:50)
--- NOTE | 2020-11-02 14:56 | MHIPN ---
[facility] PROGRESS NOTE DATE: 11/02/2020 VITAL SIGNS: Blood pressure 129/60, pulse 95, temperature 98.1. This is a video assessment. She is seen in the presence of staff. She is at the inpatient [facility]. I am at home. CHIEF COMPLAINT: Says feels better. SUBJECTIVE: Seen for followup. Indicates is feeling better, though also suggests that her moods have been at times up. At times they go down. Has been anxious. Feels the intensity of the fluctuations of mood have improved a bit. Says appetite is okay but that she has trouble with food and that she does not particularly like it. Was agitated at night. Was given Zyprexa 5 mg as needed on two occasions and a low dose of lorazepam one on occasion at 0.5 mg, all by mouth. Was calmer later, though did not sleep much. She feels she is getting better. Energy is okay. At times tired. Denies any suicidal thoughts or intents. MENTAL STATUS EXAMINATION: She is neat. She is cooperative. No agitation. No psychomotor retardation. Speech spontaneous, goal directed. Affect is restricted in range but reactive. Denies any suicidal thoughts or intents. No homicidal ideas or intents. At present no overt delusions elicited. Cognition grossly intact. Judgment and insight remain quite compromised. ASSESSMENT: 1. Bipolar disorder, current episode quite possibly manic or mixed with psychotic features. 2. Panic disorder without agoraphobia. 3. Cannabis use disorder. Moods remain unstable, though possibly a bit improved. PLAN: Continue current care, observations, and this includes the paliperidone 3 mg at night. May need to consider increasing it. May also need to consider decreasing of eliminating the venlafaxine should this be a manic episode. She has indicated when the dose of the venlafaxine is above 150 mg has had periods of navjot. This raises questions about the efficacy as well as drawbacks using the venlafaxine. She also indicates her son is visiting from [place]. He lives there. She has not seen him for almost 2 years. He leaves Wednesday morning (today is Wednesday). She requests that he may be allowed to visit. At present, no visitors are allowed in the inpatient psychiatry unit as far as I am aware. Given the above, however, I would suggest we look at seeing if it is possible that her son can visit for a short while. We will explore this via management as well. Meanwhile, rest of precautions are to continue.
[2020-11-02 16:31] VITALS: BP 137/71
[2020-11-02] MEDS: traZODone 50 MG TAB PO PRN (20:39)
[2020-11-02] MEDS: PALIPERIDONE 3 MG ER TAB (INVEGA) PO SCH (20:39)
[2020-11-02] MEDS: ANALGESIC BALM CRM 3OZ TOP SCH (21:46)
[2020-11-03] MEDS: OLANZapine ORAL DISINTEGRATING TAB 5MG PO PRN ×3 (01:59→19:15)
[2020-11-03] MEDS: IBUPROFEN 600MG TAB PO PRN ×3 (02:00→22:39)
[2020-11-03] MEDS: MAALOX 30 ML SUSP *UDC PO PRN ×2 (02:01→15:56)
[2020-11-03] MEDS: ALBUTEROL 90 MCG/ACT 8GM HFA INHALER INH PRN (02:02)
[2020-11-03] MEDS ORDERED: hydrOXYzine 25 MG TAB PO ONE (04:20)
[2020-11-03 06:22] VITALS: BP 122/70
[2020-11-03] MEDS: AZELASTINE 137MCG NASAL SPY 30 ML (ASTELIN) SCH ×2 (08:55→21:07)
[2020-11-03] MEDS: VENLAFAXINE **XR** 75MG CAPSULE PO SCH (08:56)
[2020-11-03] MEDS: ANALGESIC BALM CRM 3OZ TOP SCH ×4 (08:56→21:08)
[2020-11-03] MEDS: ATORVASTATIN 20 MG TAB PO SCH (08:56)
[2020-11-03] MEDS: CETIRIZINE (ZyrTEC) 10 MG TAB PO SCH (08:56)
[2020-11-03] MEDS: PANTOPRAZOLE 40MG TAB (PROTONIX) PO SCH (08:57)
[2020-11-03] MEDS: DIVALPROEX 250 MG TAB PO SCH ×2 (08:57→21:08)
[2020-11-03] MEDS: SPIRONOLACTONE 25 MG TAB PO SCH (08:57)
[2020-11-03] MEDS: NYSTATIN 500,000 U/5 ML SUSP UDC SS SCH ×2 (09:00→21:09)
[2020-11-03] MEDS: atenoloL 50 MG TAB PO SCH (09:00)
[2020-11-03] MEDS: NICOTINE 21MG/24HR 1 EA TRANSDERMAL TD SCH (09:00)
[2020-11-03] MEDS ORDERED: FLUCONAZOLE 50MG TABLET PO ONE (13:00)
[2020-11-03 15:40] VITALS: BP 142/74
[2020-11-03] MEDS: hydrOXYzine 10 MG TAB PO PRN ×2 (15:43→22:39)
[2020-11-03] MEDS: PALIPERIDONE 3 MG ER TAB (INVEGA) PO SCH (21:08)
[2020-11-03] MEDS: traZODone 50 MG TAB PO PRN (22:39)
[2020-11-04] MEDS: OLANZapine ORAL DISINTEGRATING TAB 5MG PO PRN ×2 (01:56→23:29)
[2020-11-04] MEDS: IBUPROFEN 600MG TAB PO PRN ×2 (03:34→12:02)
[2020-11-04 06:33] VITALS: BP 147/70
--- NOTE | 2020-11-04 08:22 | MHIPN ---
[facility] PROGRESS NOTE DATE: 11/03/2020 VITAL SIGNS: Blood pressure 164/79, pulse 73, temperature 97.4. This is a video assessment, she is seen in the presence of staff, she is at the hospital, inpatient unit, I am at home. CHIEF COMPLAINT: She feels she has some nausea. SUBJECTIVE: She is seen for followup, indicates had a reasonable day yesterday, and slept okay until about 2:30 in the morning, since then has had nausea off and on, has felt a bit anxious as well. Says has had nausea in the past, when she takes Protonix it helps her, currently remains on the Protonix. Has had anxiety, and feels her mood has tended to fluctuate. Denies any suicidal thoughts or intents. MENTAL STATUS EXAMINATION: She is neat, cooperative, no agitation, no psychomotor retardation, speech somewhat overly productive, but generally directable, affect fairly broad. Denies any thoughts of harming herself or anyone else, no evidence of any psychosis as such, overtly, cognition grossly intact, judgment and insight remain compromised. ASSESSMENT: Bipolar disorder, current episode possibly manic or mixed with psychotic features. Panic disorder without agoraphobia. Cannabis use disorder. Moods are unstable, though possibly less prominently so than in the last couple of days. Has some nausea, says has had that off and on for a while. She also indicates that she has been on the venlafaxine since the mid , and that whenever decreased, feels depressed and tends to cry more, but whenever increased, tends to have navjot-like symptoms. It is possible the venlafaxine may be contributing to the nausea, though she has been on it for many years. PLAN: Various options are discussed, and I would suggest slowly decreasing the venlafaxine, from the current 150 mg daily to 112.5 mg daily, to help diminish any risk for mood instability, as antidepressants can tend to do that. Meanwhile, the drawbacks of the decrease is also discussed. No other changes will be made. She is to continue with paliperidone at 3 mg at night. On further discussion, she indicates has used hydroxyzine at home, feels a bit tired afterwards, says has the option of using it up to three or four times a day. She thinks it is 10 mg each. I would suggest that she use hydroxyzine, no more than 10 mg three times a day as needed for anxiety. She is aware that she will be prescribed as needed rather than the scheduled dose. She is to be encouraged to participate in activities in the unit. She will be seeing the assigned clinicians tomorrow.
[2020-11-04] MEDS: atenoloL 50 MG TAB PO SCH (09:04)
[2020-11-04] MEDS: SPIRONOLACTONE 25 MG TAB PO SCH (09:04)
[2020-11-04] MEDS: AZELASTINE 137MCG NASAL SPY 30 ML (ASTELIN) SCH ×2 (09:04→21:13)
[2020-11-04] MEDS: NYSTATIN 500,000 U/5 ML SUSP UDC SS SCH ×2 (09:04→21:15)
[2020-11-04] MEDS: CETIRIZINE (ZyrTEC) 10 MG TAB PO SCH (09:05)
[2020-11-04] MEDS: VENLAFAXINE **XR** 37.5 MG CAPSULE PO SCH (09:05)
[2020-11-04] MEDS: ATORVASTATIN 20 MG TAB PO SCH (09:06)
[2020-11-04] MEDS: DIVALPROEX 250 MG TAB PO SCH ×2 (09:06→21:14)
[2020-11-04] MEDS: PANTOPRAZOLE 40MG TAB (PROTONIX) PO SCH (09:06)
[2020-11-04] MEDS: NICOTINE 21MG/24HR 1 EA TRANSDERMAL TD SCH (09:07)
[2020-11-04] MEDS: ANALGESIC BALM CRM 3OZ TOP SCH ×4 (09:09→21:14)
[2020-11-04] MEDS: MOM 30ML SUSPENSION UDC PO PRN (10:27)
[2020-11-04 12:59] LABS: GC DNA AMPLIFICATION NEGATIVE (NEGATIVE)
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
[2020-11-04] MEDS: hydrOXYzine 10 MG TAB PO PRN (15:34)
--- NOTE | 2020-11-04 18:35 | IPNPDOC ---
Subjective Date Seen The patient was seen on 11/04/20. Subjective Chief Complaint/HPI Patient is complaining unrelenting GERD he sleeps, along with constipation. She ambulating in the halls and socializing without issues. She does not appear to have any abdominal pain Objective Physical Examination General Exam: Positive: Alert, No Acute Distress Eye Exam: Positive: PERRLA, Conjunctiva & lids normal, EOMI; Negative: Sclera icteric ENT Exam: Positive: Atraumatic, Mucous membr. moist/pink, Pharynx Normal Neck Exam: Positive: Supple; Negative: JVD, thyromegaly Chest Exam: Positive: Clear to auscultation, Normal air movement Heart Exam: Positive: Rate Normal, Regular Rhythm, Normal S1, Normal S2; Negative: Murmurs, Rubs Telemetry: Positive: No significant arrhythmia Abdomen Exam: Positive: Normal bowel sounds, Soft; Negative: Tenderness, Hepatospenomegaly Extremity Exam: Positive: Normal pulses; Negative: Clubbing, Cyanosis, Edema Skin Exam: Positive: Nl turgor and temperature; Negative: Rash, Breakdown Neuro Exam: Positive: Normal Gait, Normal Speech Assessment /Plan Assessment # Constipation # Subclinical hypothyroidism - start low dose synthroid 25 mcg daily - repeat TSH, FT4 in 6-8 weeks - add miralax, colace - check kub # GERD - protonix 40 mg daily x 30 days, if still persists, f/u with GI as outpatient # Psychosis - mgmt per psych Plan/VTE VTE Prophylaxis Ordered?: No VS, I&O, 24H, Fishbone Vital Signs/I&O Vital Signs Date Time Temp Pulse Resp B/P (MAP) Pulse Ox O2 Delivery O2 Flow Rate FiO2 11/04/20 09:04 96 147/70 11/04/20 06:33 97.6 12 99 Room Air Laboratory Data Microbiology Microbiology 11/01/20 Gram Stain - Final, Complete 11/01/20 Sputum Culture - Final, Complete TAE CRESPO MD Nov 04, 2020 18:35
[2020-11-04 19:04] VITALS: BP 137/88
[2020-11-04] MEDS: PALIPERIDONE 3 MG ER TAB (INVEGA) PO SCH (21:14)
[2020-11-05] MEDS ORDERED: LORazepam 2 MG TAB PO ONE (00:50)
[2020-11-05] MEDS ORDERED: diphenhydrAMINE 50MG CAP PO ONE (00:50)
[2020-11-05 06:00] VITALS: BP 136/66
[2020-11-05] MEDS: LEVOTHYROXINE 25MCG TABLET (0.025MG) PO SCH (06:13)
[2020-11-05] MEDS: NICOTINE 21MG/24HR 1 EA TRANSDERMAL TD SCH ×2 (09:00→17:46)
[2020-11-05] MEDS: MIRALAX *UNIT DOSE* 17GM PACKET PO SCH (09:00)
[2020-11-05] MEDS: AZELASTINE 137MCG NASAL SPY 30 ML (ASTELIN) SCH ×2 (09:15→21:00)
[2020-11-05] MEDS: PANTOPRAZOLE 40MG TAB (PROTONIX) PO SCH (09:16)
[2020-11-05] MEDS: VENLAFAXINE **XR** 37.5 MG CAPSULE PO SCH (09:16)
[2020-11-05] MEDS: ATORVASTATIN 20 MG TAB PO SCH (09:16)
[2020-11-05] MEDS: CETIRIZINE (ZyrTEC) 10 MG TAB PO SCH (09:16)
[2020-11-05] MEDS: atenoloL 50 MG TAB PO SCH (09:16)
[2020-11-05] MEDS: NYSTATIN 500,000 U/5 ML SUSP UDC SS SCH ×2 (09:16→21:35)
[2020-11-05] MEDS: SPIRONOLACTONE 25 MG TAB PO SCH (09:16)
[2020-11-05] MEDS: DIVALPROEX 250 MG TAB PO SCH ×2 (09:16→21:35)
[2020-11-05] MEDS: ANALGESIC BALM CRM 3OZ TOP SCH ×4 (09:21→21:35)
[2020-11-05] MEDS: IBUPROFEN 600MG TAB PO PRN (12:06)
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
--- NOTE | 2020-11-05 14:23 | REP ---
INDICATION: abd pain. COMPARISON: None. FINDINGS: KUB shows the intestinal gas pattern to be nonspecific. There is a large amount of content seen throughout the colon. The organ silhouettes insofar as delineated are unremarkable. There is no evidence of free intraperitoneal air. IMPRESSION: Large amount of colonic content. <Electronically signed by Abelardo Simpson > 11/05/20 [id number]
[2020-11-05] MEDS: DOCUSATE SODIUM 100MG CAPSULE PO PRN (15:29)
[2020-11-05] MEDS: hydrOXYzine 10 MG TAB PO PRN (15:30)
[2020-11-05 18:03] VITALS: BP 122/58
[2020-11-05 20:19] LABS: HEMATOCRIT 44.2 % (36.0-47.0); HEMOGLOBIN 14.9 g/dl (12.0-15.5); MEAN CORPUSCULAR HEMOGLOBIN 31.8 pg (27.0-33.0); MEAN CORPUSCULAR HGB CONC 33.7 g/dl (32.0-36.5); MEAN CORPUSCULAR VOLUME 94.2 fl (80.0-96.0); PLATELET COUNT, AUTOMATED 366 10^3/uL (150-450); RED BLOOD COUNT 4.69 10^6/uL (4.00-5.40)
[2020-11-05 20:21] LABS: WHITE BLOOD COUNT 12.8 10^3/uL (4.0-10.0)
[2020-11-05 20:40] LABS: ALBUMIN 3.6 GM/DL (3.2-5.2); ALT/SGPT 36 U/L (12-78); BILIRUBIN,DIRECT < 0.1 MG/DL (0.0-0.2); BILIRUBIN,TOTAL 0.3 MG/DL (0.2-1.0); TOTAL PROTEIN 7.3 GM/DL (6.4-8.2); VALPROIC ACID (DEPAKOTE) 62.3 UG/ML (50.0-100.0)
[2020-11-05 20:50] LABS: ATYPICAL LYMPH 2 % (0-5); BASOPHILS 1 % (0-1); EOSINOPHILS 1 % (0-3); LYMPHOCYTES 38 % (16-44); MONOCYTES 8 % (0-5); NEUTROPHILS 50 % (28-66)
[2020-11-05 20:51] LABS: PLATELET ESTIMATE NORMAL (NORMAL)
[2020-11-05] MEDS: PALIPERIDONE 3 MG ER TAB (INVEGA) PO SCH (21:36)
[2020-11-05] MEDS: MOM 30ML SUSPENSION UDC PO PRN (22:50)
[2020-11-06] MEDS: LEVOTHYROXINE 25MCG TABLET (0.025MG) PO SCH (06:06)
[2020-11-06 06:58] VITALS: BP 134/61
[2020-11-06] MEDS: NICOTINE 21MG/24HR 1 EA TRANSDERMAL TD SCH (08:04)
[2020-11-06] MEDS: MIRALAX *UNIT DOSE* 17GM PACKET PO SCH (08:04)
[2020-11-06] MEDS: DIVALPROEX 250 MG TAB PO SCH (08:05)
[2020-11-06] MEDS: ATORVASTATIN 20 MG TAB PO SCH (08:05)
[2020-11-06] MEDS: VENLAFAXINE **XR** 37.5 MG CAPSULE PO SCH (08:05)
[2020-11-06] MEDS: AZELASTINE 137MCG NASAL SPY 30 ML (ASTELIN) SCH (08:05)
[2020-11-06] MEDS: PANTOPRAZOLE 40MG TAB (PROTONIX) PO SCH (08:05)
[2020-11-06] MEDS: SPIRONOLACTONE 25 MG TAB PO SCH (08:05)
[2020-11-06] MEDS: ANALGESIC BALM CRM 3OZ TOP SCH (08:05)
[2020-11-06] MEDS: CETIRIZINE (ZyrTEC) 10 MG TAB PO SCH (08:05)
[2020-11-06] MEDS: NYSTATIN 500,000 U/5 ML SUSP UDC SS SCH (08:05)
[2020-11-06 08:14] VITALS: BP 147/69
[2020-11-06] MEDS: atenoloL 50 MG TAB PO SCH (08:14)
[2020-11-06] MEDS: DOCUSATE SODIUM 100MG CAPSULE PO PRN (08:15)
[2020-11-06] MEDS ORDERED: DOK1CAP7 PO (09:21)
[2020-11-06] MEDS ORDERED: LEVO25TA5 PO (09:21)
[2020-11-06] MEDS ORDERED: VENL37.52 PO (09:21)
[2020-11-06] MEDS ORDERED: NICO21PAT TD (09:21)
[2020-11-06] MEDS ORDERED: VENL75CA2 PO (09:21)
[2020-11-06] MEDS ORDERED: PALI1TAB2 PO (09:21)
[2020-11-06] MEDS ORDERED: MIRA1POW3 PO (09:21)
[2020-11-06] MEDS ORDERED: DEPA250T32 PO (09:21)
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
== END 2020-11-06 11:29 | disposition home or self-care (01) | DRG 885 ==
LOC: M ED 03:25 → M ED INP 10-30 15:20 → M PSY 10-30 16:28
PROVIDERS: ADMIT Psychiatry & Neurology Psychiatry; ATTEND Psychiatry & Neurology Psychiatry
DX: F31.2 Bipolar disorder, current episode manic severe with psychotic features (principal); R45.851 Suicidal ideations; F12.10 Cannabis abuse, uncomplicated; I10 Essential (primary) hypertension; J45.909 Unspecified asthma, uncomplicated; K21.9 Gastro-esophageal reflux disease without esophagitis; G47.33 Obstructive sleep apnea (adult) (pediatric); E78.5 Hyperlipidemia, unspecified; E66.9 Obesity, unspecified; F17.210 Nicotine dependence, cigarettes, uncomplicated; Z79.899 Other long term (current) drug therapy; Z68.32 Body mass index [BMI] 32.0-32.9, adult; F41.0 Panic disorder [episodic paroxysmal anxiety]; Z20.822 Contact with and (suspected) exposure to COVID-19; K59.00 Constipation, unspecified; E03.9 Hypothyroidism, unspecified

== ENCOUNTER 2020-11-09 22:28 | Emergency (ER) | payer OTHER ==
[~2020-11-09] VITALS: Ht 160 cm; Wt 80.3 kg
[~2020-11-09 22:28] MED LIST changes: +AZEL1SPR3 NARES; +DEPA250T32 PO; +DOK1CAP7 PO; +FLUC150T PO; +HYDR-643 PO; +LEVO25TA5 PO; +MIRA1POW3 PO; +NICO21PAT TD; +PALI1TAB2 PO; +SPIR1TAB34 PO; +VENL37.52 PO; +VENL75CA2 PO; +VENTAER INH
[2020-11-09 22:32] VITALS: BP 159/87
== END 2020-11-10 00:01 | disposition left against medical advice (07) ==
LOC: M ED 22:28
DX: Z53.21 Procedure and treatment not carried out due to patient leaving prior to being seen by health care provider (principal)

== ENCOUNTER 2020-12-12 02:47 | Emergency (ER) | payer OTHER, SELFPAY ==
[~2020-12-12] VITALS: Ht 160 cm; Wt 81.6 kg
[~2020-12-12 02:47] MED LIST changes: +DOK1CAP4 PO; -DOK1CAP7 PO
[2020-12-12 07:41] VITALS: BP 124/74
== END 2020-12-12 07:43 | disposition home or self-care (01) ==
LOC: M ED 02:47
DX: R68.89 Other general symptoms and signs (principal); Z87.39 Personal history of other diseases of the musculoskeletal system and connective tissue; I10 Essential (primary) hypertension; E78.5 Hyperlipidemia, unspecified; F31.9 Bipolar disorder, unspecified; G47.33 Obstructive sleep apnea (adult) (pediatric); F12.10 Cannabis abuse, uncomplicated; Z79.899 Other long term (current) drug therapy

== ENCOUNTER → 2021-01-02 | Outpatient (CLI) | payer OTHER ==
--- NOTE | 2021-01-03 09:01 | REPVR ---
PROCEDURE INFORMATION: Exam: MR Head Without Contrast Exam date and time: 01/02/2021 1:54 PM Age: 55 years old Clinical indication: Pain; Headache; Migraine; Additional info: Intractable migraine TECHNIQUE: Imaging protocol: MR of the head without contrast. COMPARISON: CT Head without contrast 10/29/2020 3:48 AM FINDINGS: Brain: I see no evidence of acute hemorrhage or acute territorial infarct. For age there are mild to moderate diffuse involutional changes in the brain. Scattered T2 and FLAIR hyperintensities in the white matter suggest early or mild small vessel disease. The expected vascular flow voids are present centrally. Partially empty sella is incidentally noted. Cerebral ventricles: Normal. No ventriculomegaly. Bones/joints: Unremarkable. Paranasal sinuses: Normal as visualized. No acute sinusitis. Mastoid air cells: Normal as visualized. No mastoid effusion. Orbital cavity: Unremarkable. Soft tissues: Unremarkable. IMPRESSION: No acute intracranial abnormality and no MRI explanation for the patient's headache. Electronically signed by: Dereck Rosen On 01/03/2021 09:00:40 AM
== END ==
LOC: M PLAIMG 13:14
PROVIDERS: ATTEND Family Medicine
DX: G43.011 Migraine without aura, intractable, with status migrainosus (principal)

== ENCOUNTER → 2021-09-29 | Outpatient (CLI) | payer OTHER ==
[~2021-09-29] MED LIST changes: -FLUC150T PO; +FLUC150T9 PO; -MOME50SP NARES; +NASO50SP3 NARES; -TRIA37.53 PO; +TRIA37.577 PO
[2021-09-29 09:14] LABS: BASO # 0.1 10^3/uL (0.0-0.2); BASO % 0.5 % (0.0-1.0); EOS # 0.2 10^3/uL (0.0-0.5); EOS % 1.3 % (0.0-3.0); HEMATOCRIT 49.3 % (36.0-47.0); LYMPH # 3.3 10^3/uL (1.5-5.0); LYMPH % 22.4 % (24.0-44.0); MEAN CORPUSCULAR HEMOGLOBIN 32.5 pg (27.0-33.0); MEAN CORPUSCULAR HGB CONC 34.5 g/dl (32.0-36.5); MEAN CORPUSCULAR VOLUME 94.3 fl (80.0-96.0); MONO # 1.2 10^3/uL (0.0-0.8); NEUTROPHILS # 10.1 10^3/uL (1.5-8.5); NEUTROPHILS % 67.5 % (36.0-66.0); PLATELET COUNT, AUTOMATED 306 10^3/uL (150-450); RED BLOOD COUNT 5.23 10^6/uL (4.00-5.40); WHITE BLOOD COUNT 14.9 10^3/uL (4.0-10.0)
[2021-09-29 09:44] LABS: ALBUMIN 3.8 GM/DL (3.2-5.2); ALT/SGPT 41 U/L (12-78); BILIRUBIN,TOTAL 0.5 MG/DL (0.2-1.0); BLOOD UREA NITROGEN 14 MG/DL (7-18); CALCIUM LEVEL 10.3 MG/DL (8.5-10.1); CARBON DIOXIDE LEVEL 26 MEQ/L (21-32); CHLORIDE LEVEL 105 MEQ/L (98-107); CHOLESTEROL LEVEL 105 MG/DL (<200); CHOLESTEROL RISK RATIO 3.088 (<5); CREATININE FOR GFR 0.84 MG/DL (0.55-1.30); FREE T4 1.11 NG/DL (0.76-1.46); GLOMERULAR FILTRATION RATE > 60.0 (>51); GLUCOSE, FASTING 102 MG/DL (70-100); HDL CHOLESTEROL 34 MG/DL (>40); LDL CHOLESTEROL 32 MG/DL (<100); NON-HDL-C 71 MG/DL; POTASSIUM SERUM 3.9 MEQ/L (3.5-5.1); SODIUM LEVEL 141 MEQ/L (136-145); TOTAL PROTEIN 7.6 GM/DL (6.4-8.2); TRIGLYCERIDES LEVEL 195 MG/DL (<150)
== END ==
LOC: M LAB 08:35
PROVIDERS: ATTEND Family Medicine
DX: E78.2 Mixed hyperlipidemia (principal); J45.909 Unspecified asthma, uncomplicated; E03.9 Hypothyroidism, unspecified

== ENCOUNTER → 2022-09-04 | Outpatient (CLI) | payer OTHER | LOC: M WHC 08:59 | PROVIDERS: ATTEND Family Medicine | DX: Z12.31 Encounter for screening mammogram for malignant neoplasm of breast (principal) ==

== ENCOUNTER → 2023-10-21 | Outpatient (CLI) | payer OTHER ==
[~2023-10-21] MED LIST changes: -KLON0.5T PO; +KLON0.5T8 PO; -MIRA1POW3 PO; +MIRA33506 PO
== END ==
LOC: M RAD 16:42
PROVIDERS: ATTEND Family Medicine
DX: F17.210 Nicotine dependence, cigarettes, uncomplicated (principal); Z53.9 Procedure and treatment not carried out, unspecified reason

== ENCOUNTER → 2023-12-06 | Outpatient (CLI) | payer OTHER | LOC: M RAD 08:38 | PROVIDERS: ATTEND Family Medicine | DX: Z12.2 Encounter for screening for malignant neoplasm of respiratory organs (principal); F17.210 Nicotine dependence, cigarettes, uncomplicated; R91.8 Other nonspecific abnormal finding of lung field ==

== ENCOUNTER 2024-10-18 12:29 | Day surgery (SDC) | payer OTHER ==
[~2024-10-18] VITALS: Ht 157.5 cm; Wt 81.2 kg
[~2024-10-18 12:29] MED LIST changes: +ATOR-398 PO; -DEPA250T32 PO; +DIVA-65 PO; +EFFE150C3 PO; +LEVO50TA5 PO; -LIPI80TA PO; +TOPI-256; -TOPI25TA10
[2024-10-18] MEDS ORDERED: GLYCOPYRROLATE INJ 0.2 MG/ML 2 ML VIAL As Ordered ONE (14:05)
[2024-10-18] MEDS ORDERED: LABETALOL 100 MG/20 ML VIAL As Ordered ONE (14:21)
[2024-10-18 14:34] VITALS: TEMP 97.8
[2024-10-18 14:57] VITALS: BP 138/77; O2SAT 98
== END 2024-10-18 15:05 | disposition home or self-care (01) ==
LOC: M OPP 12:29
PROVIDERS: ATTEND Surgery
DX: K63.5 Polyp of colon (principal); K57.30 Diverticulosis of large intestine without perforation or abscess without bleeding; K64.8 Other hemorrhoids; Z86.0100 Personal history of colon polyps, unspecified; K31.89 Other diseases of stomach and duodenum; K30 Functional dyspepsia; G47.30 Sleep apnea, unspecified; Z79.899 Other long term (current) drug therapy; J45.909 Unspecified asthma, uncomplicated; F17.210 Nicotine dependence, cigarettes, uncomplicated
CPT/HCPCS: 43239; 45380; 88305; J1596; J1920; J3010

== ENCOUNTER → 2024-12-06 | Outpatient (CLI) | payer OTHER | LOC: M RAD 14:38 | PROVIDERS: ATTEND Physician Assistant | DX: Z12.2 Encounter for screening for malignant neoplasm of respiratory organs (principal); Z87.891 Personal history of nicotine dependence; M47.814 Spondylosis without myelopathy or radiculopathy, thoracic region; Z90.49 Acquired absence of other specified parts of digestive tract ==

== ENCOUNTER → 2025-02-10 | Outpatient (CLI) | payer OTHER ==
[2025-02-10 10:48] LABS: PLATELET COUNT, AUTOMATED 319 10^3/uL (150-450)
[2025-02-10 11:01] LABS: ESTIMATED AVERAGE GLUCOSE 120.0 MG/DL (60-110)
[2025-02-10 11:05] LABS: ALT/SGPT 24.0 U/L (7.0-40); AST/SGOT 18.0 U/L (<34); CALCIUM LEVEL 9.8 MG/DL (8.5-10.1); CARBON DIOXIDE LEVEL 26.0 MMOL/L (20-31); CHLORIDE LEVEL 109.0 MMOL/L (98-107); CHOLESTEROL LEVEL 110.0 MG/DL (<200); CHOLESTEROL RISK RATIO 3.3 (<5); CREATININE FOR GFR 0.77 MG/DL (0.55-1.30); GLOMERULAR FILTRATION RATE 89.4 (>51); LDL CHOLESTEROL 47.3 MG/DL (<100); NON-HDL-C 76.7 MG/DL; POTASSIUM SERUM 4.3 MMOL/L (3.5-5.1); SODIUM LEVEL 141.0 MMOL/L (136-145); TRIGLYCERIDES LEVEL 147.0 MG/DL (<150)
[2025-02-10 11:08] LABS: FREE T4 1.26 NG/DL (0.89-1.76)
== END ==
LOC: M LAB 09:41
PROVIDERS: ATTEND Physician Assistant
DX: I10 Essential (primary) hypertension (principal); J45.909 Unspecified asthma, uncomplicated; F17.210 Nicotine dependence, cigarettes, uncomplicated; J30.9 Allergic rhinitis, unspecified; K21.9 Gastro-esophageal reflux disease without esophagitis; Z12.31 Encounter for screening mammogram for malignant neoplasm of breast; Z12.11 Encounter for screening for malignant neoplasm of colon